=== PATIENT | female | born 1965 | race Caucasian/White ===

== ENCOUNTER → 2019-08-04 11:00 | Outpatient (BNVA) | payer OTHER, MEDICAID, SELFPAY | PROVIDERS: Visit Provider Nurse Practitioner Family | DX: R50.9 Fever, unspecified (principal); E78.5 Hyperlipidemia, unspecified; J11.1 Influenza due to unidentified influenza virus with other respiratory manifestations; R73.9 Hyperglycemia, unspecified | CPT/HCPCS: 80053; 80061; 83036; 84443; 85025; 87804 ==

== ENCOUNTER → 2019-09-20 14:12 | Outpatient (BNVA) | payer MEDICAID, SELFPAY | PROVIDERS: Visit Provider Nurse Practitioner Family | DX: M79.604 Pain in right leg (principal) | CPT/HCPCS: 73590; 73610 ==

== ENCOUNTER → 2019-09-26 09:07 | Outpatient (BNVA) | payer MEDICAID, SELFPAY | PROVIDERS: Referring Provider Nurse Practitioner Family; Visit Provider Podiatrist Foot & Ankle Surgery | DX: S99.929A Unspecified injury of unspecified foot, initial encounter (principal) | CPT/HCPCS: 73630 ==

== ENCOUNTER → 2019-12-13 13:57 | Outpatient (BNVA) | payer MEDICAID, SELFPAY | PROVIDERS: Visit Provider Nurse Practitioner Family | DX: M25.552 Pain in left hip (principal) | CPT/HCPCS: 73502 ==

== ENCOUNTER → 2020-01-05 12:30 | Outpatient (BNVA) | payer MEDICAID, SELFPAY | PROVIDERS: Visit Provider Nurse Practitioner Family | DX: R73.9 Hyperglycemia, unspecified (principal); M79.662 Pain in left lower leg; E78.5 Hyperlipidemia, unspecified; J30.2 Other seasonal allergic rhinitis; W57.XXXA Bitten or stung by nonvenomous insect and other nonvenomous arthropods, initial encounter | CPT/HCPCS: 80053; 80061; 83036; 85025 ==

== ENCOUNTER 2020-02-07 11:36 | Outpatient (CLI) | payer MEDICAID, SELFPAY ==
--- NOTE | 2020-02-07 11:43 | USCV_ITS ---
Keli Boucher Age: 54 Gender: F : 1965 Exam Date: 02/07/2020 11:56 Ordering Phys: Amber Minor TRENCH TRIMMER FINE TRENCH TRIMMER FINE Technologist: Lynette Orozco [place] [facility] [place]: PAIN LT CALF. SPIDER BITE MEDIAL LT POP FOSSA HISTORY: BLACK spider bite. PROCEDURES: Venous duplex imaging was performed in only the left lower extremity. The following venous structures were evaluated: common femoral vein, profunda vein, proximal portion of the greater saphenous vein, superficial femoral vein, and the popliteal vein. In addition, the posterior tibial and peroneal trunk were evaluated. Serial compression, augmentation maneuvers, and spectral Doppler flow evaluation were performed. Area of bite examined and Lt. SSV. FINDINGS: Normal 2-D Doppler and augmentation and compressibility throughout the lower extremity venous structures. Additional imaging through the proximal calf veins also reveals no thrombus. Limited evaluation of the greater saphenous vein is patent with no thrombus. CONCLUSIONS No DVT left lower extremity. Dr. Radha iLng DO (Electronically Signed) Final Date: 07 February 2020 14:38 S
== END 2020-02-07 11:37 | disposition home or self-care (01) ==
LOC: US 11:37
PROVIDERS: PCP Nurse Practitioner Family; Visit Provider Nurse Practitioner Family
DX: M79.662 Pain in left lower leg (principal); T63.301A Toxic effect of unspecified spider venom, accidental (unintentional), initial encounter; X58.XXXA Exposure to other specified factors, initial encounter
CPT/HCPCS: 93971

== ENCOUNTER 2020-04-05 11:38 | Outpatient (CLI) | payer MEDICAID, SELFPAY ==
--- NOTE | 2020-04-05 12:00 | MM_ITS ---
WS: [id number] BILATERAL SCREENING DIGITAL MAMMOGRAM WITH CAD HISTORY: breast cancer screening COMPARISON: 02/24/2017 Bilateral CC and MLO views submitted. Computer aided detection analyzed. Breast composition: There are scattered areas of fibroglandular density. No suspicious masses. Area o f architectural distortion in the mid RIGHT breast is stable. There are benign calcifications bilater ally. Long-term stability of an 8 mm nodule upper outer quadrant RIGHT breast. MM/[place] [id number] IMPRESSION: BI-RADS: 2-Benign FOLLOW UP: 1 Year Follow-up
== END 2020-04-05 11:39 | disposition home or self-care (01) ==
LOC: RADSHAW 11:42
PROVIDERS: PCP Nurse Practitioner Family; Visit Provider Nurse Practitioner Women's Health
DX: Z12.31 Encounter for screening mammogram for malignant neoplasm of breast (principal)
CPT/HCPCS: 77067

== ENCOUNTER → 2020-06-25 10:14 | Outpatient (BNVA) | payer MEDICAID, SELFPAY | PROVIDERS: PCP Nurse Practitioner Family; Visit Provider Nurse Practitioner Family | DX: M25.552 Pain in left hip (principal); E11.9 Type 2 diabetes mellitus without complications | CPT/HCPCS: 80053; 80061; 82043; 82306; 82607; 83036; 85025 ==

== ENCOUNTER 2020-08-30 12:57 | Outpatient (CLI) | payer MEDICAID, SELFPAY ==
[2020-08-30] MEDS: iohexol 300 mg/mL 100 mL Btl IV (13:26)
--- NOTE | 2020-08-30 13:30 | CT_ITS ---
WS: [id number] CT CHEST TECHNIQUE: Contrast enhanced CT of the chest with coronal and sagittal reformatted images. CLINICAL INFORMATION: R05 - Cough COMPARISON: None. DLP: 940.[address] scans at [facility] use at least one of these dose optimization techniques: automat ed exposure control; mA and/or kV adjustment per patient size (includes targeted exams where dose is matched to clinical indication); or iterative reconstruction. FINDINGS: Both lungs are well aerated. No acute pulmonary infiltrates. No focal pneumonia or pleural fluid. Indra cified granuloma left lower lobe. No mediastinal or hilar lymphadenopathy. No axillary lymphadenopathy. Normal caliber thoracic aorta. Proximal main pulmonary arteries are normal. Diffuse fatty infiltration of the liver. Adrenal glands are normal. Hypertrophic changes mid thoracic spine. CT/CT chest w con* [id number] IMPRESSION: 1. Both lungs are well aerated. No acute pulmonary infiltrates. 2. No suspicious pulmonary parenchymal opacities. 3. No focal pneumonia or pleural fluid. 4. No mediastinal or hilar lymphadenopathy. 5. Diffuse fatty infiltration of the liver.
== END 2020-08-30 12:58 | disposition home or self-care (01) ==
LOC: RADWPI 13:00
PROVIDERS: PCP Nurse Practitioner Family; Visit Provider Nurse Practitioner Family
DX: R05 Cough (principal); K76.0 Fatty (change of) liver, not elsewhere classified
CPT/HCPCS: 71046; 71260; Q9967

== ENCOUNTER 2020-11-10 11:09 | Emergency (ER) | payer MEDICAID, SELFPAY ==
[2020-11-10 11:17] VITALS: BP 167/108; PULSE 100; RESP 18; TEMP 36.5; O2SAT 97; BMI 32.9
[2020-11-10 11:25] VITALS: BP 167/108; PULSE 99; RESP 18; O2SAT 97
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
[2020-11-10 12:01] VITALS: BP 148/80; PULSE 93; RESP 18; TEMP 37.2; O2SAT 97
== END 2020-11-10 12:04 | disposition home or self-care (01) ==
PROVIDERS: Emergency Provider Physician Assistant; PCP Nurse Practitioner Family
DX: L03.112 Cellulitis of left axilla (principal); Z79.82 Long term (current) use of aspirin; Z79.84 Long term (current) use of oral hypoglycemic drugs; E78.5 Hyperlipidemia, unspecified; Z77.22 Contact with and (suspected) exposure to environmental tobacco smoke (acute) (chronic)
CPT/HCPCS: 99282

== ENCOUNTER → 2021-01-29 14:26 | Outpatient (BNVA) | payer MEDICAID, SELFPAY | PROVIDERS: PCP Nurse Practitioner Family; Visit Provider Nurse Practitioner Women's Health | DX: R30.0 Dysuria (principal); N95.2 Postmenopausal atrophic vaginitis | CPT/HCPCS: 81000; 87086 ==

== ENCOUNTER → 2021-02-06 15:26 | Outpatient (BNVA) | payer MEDICAID, SELFPAY | PROVIDERS: PCP Nurse Practitioner Family; Visit Provider Podiatrist Foot & Ankle Surgery | DX: M25.571 Pain in right ankle and joints of right foot (principal); M79.671 Pain in right foot | CPT/HCPCS: 73610; 73630 ==

== ENCOUNTER 2021-02-06 16:42 | Outpatient (CLI) | payer SELFPAY | END 2021-02-06 16:43 | disposition home or self-care (01) | LOC: SPT 16:43 | PROVIDERS: PCP Nurse Practitioner Family; Visit Provider Podiatrist Foot & Ankle Surgery | DX: Z46.89 Encounter for fitting and adjustment of other specified devices (principal); S93.401D Sprain of unspecified ligament of right ankle, subsequent encounter; X58.XXXD Exposure to other specified factors, subsequent encounter | CPT/HCPCS: 97760; L1902 ==

== ENCOUNTER 2021-02-20 08:54 | Emergency (ER) | payer MEDICAID, SELFPAY ==
[2021-02-20 09:03] VITALS: BP 178/113; PULSE 98; TEMP 37.1; O2SAT 95; BMI 29.2
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
--- NOTE | 2021-02-20 09:13 | CT_ITS ---
WS: [id number] CT ABDOMEN AND PELVIS NONCONTRAST HISTORY: R flank pain TECHNIQUE: Imaging performed through the abdomen and pelvis. Coronal and sagittal reformats are submi tted. All CT scans at [facility] use at least one of these dose optimization techniques: auto mated exposure control; mA and/or kV adjustment per patient size (includes targeted exams where dose is matched to clinical indication); or iterative reconstruction. DLP: 1768.45 mGy.cm COMPARISON: 11/17/2013 Lower thorax: Lung bases are clear. Visualized heart is normal. No hiatal hernia. Liver: Mild hepatomegaly and hepatic steatosis. No bile duct dilatation. Gallbladder: Normal gallbladder. Pancreas: Normal size and attenuation. Normal pancreatic duct. No pancreatitis or mass. Spleen: Normal spleen with granulomata. Adrenal glands: Normal. No mass. Right kidney: Mildly enlarged RIGHT kidney and mild hydronephrosis. Nonobstructing 2 mm calcification RIGHT upper pole. RIGHT ureter is dilated with perinephric stranding secondary to a 3 mm calcificati on at the UV junction. There are 3 calcifications within the distal RIGHT ureter causing obstruction. One of these calcifications is extruded into the bladder. Left kidney: Exophytic 8 mm nodule from the lower pole the LEFT kidney. Slight increase in size since 2013. No obstruction or calcification. 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 Aorta: Mild atherosclerosis abdominal aorta with no aneurysm. No free fluid, intraperitoneal air or significant lymphadenopathy. GI tract: Normal appendix. No GI tract obstruction. There are a few scattered diverticula in the colo n. No adjacent inflammation. Abdominal wall: Small umbilical hernia contains fat only. Pelvis: Well-circumscribed cystic mass in the RIGHT adnexa may be ovarian in etiology. This mass sandip ures 2.2 x 2.8 cm. This cystic mass has been present since 2012 with only slight increase in size. Osseous structures: Unremarkable. CT/CT kidney stone [id number] IMPRESSION: 1. Mild RIGHT hydroureteronephrosis secondary to calcifications at the UV junc tion. There are 3 adjacent calcifications at the UV junction, one of these may actually be extruded into the bladder. The largest calcification measures 3 mm. 2. Normal appendix. 3. Cystic mass in the RIGHT adnexa with minimal increase in size since 2012. P robably related to the ovary. 4. Minimal increase in size of an 8 mm nodule which is exophytic from the LEFT kidney. Minimal increase in size since 2012.
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
[2021-02-20 09:29] VITALS: RESP 20
[2021-02-20] MEDS: ondansetron 2 mg/ML SDV 2 mL 4 MG IVP (09:30)
[2021-02-20] MEDS: morphine 4 mg/mL SDV 1 mL IVP (09:30)
[2021-02-20] MEDS: sodium chloride 0.9% 1,000 ML 999 ML IV (09:30)
[2021-02-20 09:31] LABS: Basophils % 0.7 %; Eosinophils # 0.2 10^3/uL (0.0-0.8); Eosinophils % 2.6 %; Hemoglobin 11.3 g/dL (11.5-15.3); Lymphocytes # 1.8 10^3/uL (0.8-4.8); Lymphocytes % 29.3 %; Mean Corpuscular HGB Conc 30.5 g/dL (30.0-36.0); Mean Corpuscular Hemoglobin 26.7 pg (28.0-34.0); Mean Corpuscular Volume 87.5 fl (81-99); Mean Platelet Volume 9.8 fL (7.4-10.4); Monocytes # 0.5 10^3/uL (0.2-0.9); Monocytes % 8.8 %; Neutrophils # 3.56 10^3/uL (1.8-7.7); Neutrophils % 58.3 %; Nucleated Red Blood Cells % 0 %; Platelet Count 326 10^3/cmm (130-400); Red Blood Count 4.23 10^6/uL (4.1-5.3); Red Cell Distribution Width 13.2 % (12.1-15.1); White Blood Count 6.1 10^3/uL (4.0-10.0)
[2021-02-20] MEDS: HYDROmorphone 1 mg/mL INJ 1 mL 0.5 MG IVP (10:05)
[2021-02-20] MEDS: ketorolac 30 mg/mL INJ IVP (10:08)
[2021-02-20 10:09] LABS: Add Urine Microscopic? YES; Bilirubin Urine Neg (Negative); Blood Urine 3+ (Negative); Glucose Urine UA Trace (Normal); Ketones Urine 1+ (Negative); Leukocyte Esterase Urine 1+ (Negative); Nitrate Urine Negative (Negative); Protein Urine 1+ (Negative); Urine Appearance Clear (CLEAR); Urine Color Amber (Yellow); Urobilinogen Urine Neg (Negative)
[2021-02-20 10:10] LABS: RBC Urine 25-40 /hpf (0-2); Squamous Epithelial Cell Urine 0-4 /hpf (0-5); WBC Urine 15-25 /hpf (0-5)
[2021-02-20 10:11] LABS: Add Urine Culture? Yes; Bacteria Urine 1+ /hpf
[2021-02-20 10:15] LABS: Alanine Aminotransferase 44 U/L (0-33); Albumin Level 4.2 g/dL (3.5-5.2); Alkaline Phosphatase 90 IU/L (35-105); Anion Gap 15.7 (5-19); Aspartate Amino Transferase 31 U/L (0-32); Blood Urea Nitrogen 16 mg/dL (6-20); Calcium 9.1 mg/dL (8.5-10.5); Carbon Dioxide 26 mmol/L (22-29); Chloride 106 mmol/L (98-107); Globulin 2.4 g/dL (1.3-4.6); Glomerular Filtration Rate 129.1 mL/min (90-130); Glucose 167 mg/dL (65-115); Lipase 44 U/L (13-60); Osmolality Calculated 303 mOsm/kg (285-295); Potassium 3.7 mmol/L (3.5-5.1); Sodium 144 mmol/L (136-145); Total Protein 6.6 g/dL (6.6-8.7)
[2021-02-20 10:29] VITALS: RESP 15
[2021-02-20 11:00] VITALS: RESP 15
[2021-02-20 11:16] LABS: Charge for UA Resulting for Rev
[2021-02-20 11:34] LABS: Add Urine Microscopic? YES; Bilirubin Urine Neg (Negative); Blood Urine 3+ (Negative); Glucose Urine UA 1+ (Normal); Ketones Urine 1+ (Negative); Leukocyte Esterase Urine Negative (Negative); Nitrate Urine Negative (Negative); Protein Urine 1+ (Negative); Specific Gravity, Urine 1.025 (1.005-1.030); Urine Appearance SL Hazy (CLEAR); Urine Color Straw (Yellow); Urobilinogen Urine Neg (Negative); pH Urine 5 (5-7)
[2021-02-20 12:04] VITALS: RESP 15
--- NOTE | 2021-02-20 13:44 | DCPLANNER ---
team manager had message to schedule a follow up appointment for patient with Dr. Salmeron. team manager called the office of Dr. Salmeron, spoke with Lia, gave clinic patients information. team manager was told that patients information would be printed and reviewed. Clinic will call patient with appointment information.
--- NOTE | 2021-02-21 11:31 | DCPLANNER ---
Patient has a follow up appointment scheduled for Wednesday, February 24, [address] at 3:[address] Salmeron. Clinic will call patient with appointment information.
--- NOTE | 2021-02-27 09:24 | DCPLANNER ---
Patient had a follow up appointment scheduled for 02.24.[address] Salmeron - patient did attend appointment.
== END 2021-02-20 12:05 | disposition home or self-care (01) ==
PROVIDERS: Emergency Provider Physician Assistant; PCP Nurse Practitioner Family
DX: N20.1 Calculus of ureter (principal); Z79.84 Long term (current) use of oral hypoglycemic drugs; Z79.82 Long term (current) use of aspirin; E78.5 Hyperlipidemia, unspecified; Z87.891 Personal history of nicotine dependence
CPT/HCPCS: 74176; 80053; 81001; 81003; 83690; 85025; 87086; 96361; 96374; 96375; 99284; J1170; J1885; J2270; J2405; J7030

== ENCOUNTER → 2021-02-21 14:34 | Outpatient (BNVA) | payer MEDICAID, SELFPAY | PROVIDERS: PCP Nurse Practitioner Family; Visit Provider Nurse Practitioner Women's Health | DX: N95.0 Postmenopausal bleeding (principal) | CPT/HCPCS: 76830 ==

== ENCOUNTER 2021-02-24 13:47 | Outpatient (CLI) | payer MEDICAID, SELFPAY ==
--- NOTE | 2021-02-24 13:51 | XRR_ITS ---
PROCEDURE INFORMATION: Exam: XR Abdomen Exam date and time: 02/24/2021 1:51 PM Age: 55 years old Clinical indication: Condition or disease; Kidney or ureter condition; Calculus (stone) in ureter; Prior surgery; Surgery type: Hyst, d&c; Patient HX: Follow up RT ureteral stone TECHNIQUE: Imaging protocol: XR of the abdomen. Views: Frontal supine view of the abdomen. 1 View. COMPARISON: CT kidney stone [id number] 02/20/2021 9:33 AM FINDINGS: Gastrointestinal tract: Normal. No bowel dilation. Organs: The uterus is surgically absent. Persistent 2 mm calcific densities about the right UVJ, likely corresponding to stones seen on recent abdomen CT. Scattered pelvic phleboliths are re-identified. Bones/joints: Unremarkable. XR/XR KUB [id number] IMPRESSION: Calcific densities about the right UVJ, likely corresponding to stones seen on recent abdomen CT.
== END 2021-02-24 13:48 | disposition home or self-care (01) ==
LOC: RAD 13:49
PROVIDERS: PCP Nurse Practitioner Family; Visit Provider Urology
DX: N20.1 Calculus of ureter (principal)
CPT/HCPCS: 74018; 81003; 82365; 88300

== ENCOUNTER → 2021-03-07 09:43 | Outpatient (BNVA) | payer MEDICAID, SELFPAY | PROVIDERS: PCP Nurse Practitioner Family; Visit Provider Nurse Practitioner Family | DX: E53.8 Deficiency of other specified B group vitamins (principal); E11.9 Type 2 diabetes mellitus without complications; E55.9 Vitamin D deficiency, unspecified; R03.0 Elevated blood-pressure reading, without diagnosis of hypertension; E78.5 Hyperlipidemia, unspecified; J45.40 Moderate persistent asthma, uncomplicated; J30.2 Other seasonal allergic rhinitis; J20.9 Acute bronchitis, unspecified | CPT/HCPCS: 80053; 80061; 82306; 82607; 83036; 85025 ==

== ENCOUNTER → 2021-03-10 14:21 | Outpatient (BNVA) | payer MEDICAID, SELFPAY | PROVIDERS: PCP Nurse Practitioner Family; Visit Provider Nurse Practitioner Women's Health | DX: N95.0 Postmenopausal bleeding (principal) | CPT/HCPCS: 88305 ==

== ENCOUNTER 2021-03-14 08:23 | Outpatient (CLI) | payer MEDICAID, SELFPAY ==
--- NOTE | 2021-03-14 07:15 | US_ITS ---
WS: [id number] ULTRASOUND RENAL TECHNIQUE: Ultrasound examination of both kidneys. CLINICAL INFORMATION: LEFT RENAL LESION COMPARISON: CT February 20, 2021 FINDINGS: RIGHT: Right hydronephrosis appears improved or resolved compared to the prior CT Echogenicity: Normal. Cortical thickness: 1.0 cm; Normal. Hydronephrosis: None. Perinephric fluid: None. Right kidney measures: 10.7 cm x 5.4 cm x 4.8 cm. LEFT: Left kidney: Simple inferior pole renal cyst measuring 1.3 x 1.2 x 1.2 cm Echogenicity: Normal. Cortical thickness: 0.9 cm; Normal. Hydronephrosis: None. Perinephric fluid: None. Left kidney measures: 11.5 cm x 5.3 cm x 3.9 cm. Normal visualized aorta. Bladder decompressed US/US renal BI* [id number] IMPRESSION: 1. No hydronephrosis in either kidney. 2. Bladder is decompressed. 3. Simple inferior pole renal cyst measuring 1.3 x 1.2 x 1.2 cm
--- NOTE | 2021-03-14 09:30 | XR_ITS ---
WS: [id number] ABDOMEN KUB CLINICAL INFORMATION: Renal/ureteral calculi. COMPARISON: February 24, 2021 CT February 20, 2021 FINDINGS: Pelvic phleboliths. No visualized renal parenchymal or definite ureteral calculi. Normal bowel gas pattern. Scattered air and normal caliber small and large bowel. No significant reina l distention. XR/XR KUB [id number] Impression: No visualized renal parenchymal or definite ureteral calculi. Previous describe d tiny obstructing calculi at the right UVJ too small to definitively character ize on this examination and may have resolved. This can be followed up with lele al stone protocol CT.
== END 2021-03-14 08:24 | disposition home or self-care (01) ==
LOC: US 08:25
PROVIDERS: PCP Nurse Practitioner Family; Visit Provider Urology
DX: N20.2 Calculus of kidney with calculus of ureter (principal); N28.89 Other specified disorders of kidney and ureter; N28.1 Cyst of kidney, acquired
CPT/HCPCS: 74018; 76770; 81003

== ENCOUNTER → 2021-05-12 09:52 | Outpatient (BNVA) | payer MEDICAID, SELFPAY | PROVIDERS: PCP Nurse Practitioner Family; Visit Provider Nurse Practitioner Family | DX: Z20.822 Contact with and (suspected) exposure to COVID-19 (principal); J01.01 Acute recurrent maxillary sinusitis | CPT/HCPCS: 87635 ==

== ENCOUNTER → 2021-05-15 13:20 | Outpatient (BNVA) | payer MEDICAID, SELFPAY | PROVIDERS: PCP Nurse Practitioner Family; Visit Provider Obstetrics & Gynecology | DX: N95.0 Postmenopausal bleeding (principal); R93.89 Abnormal findings on diagnostic imaging of other specified body structures; Z20.822 Contact with and (suspected) exposure to COVID-19 | CPT/HCPCS: 87635 ==

== ENCOUNTER 2021-05-20 09:25 | Day surgery (SDC) | payer MEDICAID, SELFPAY ==
[2021-05-16 13:17] LABS: Basophils % 0.9 %; Eosinophils # 0.1 10^3/uL (0.0-0.8); Eosinophils % 3.1 %; Hematocrit 35.6 % (37.0-47.0); Hemoglobin 11.1 g/dL (11.5-15.3); Lymphocytes # 1.5 10^3/uL (0.8-4.8); Lymphocytes % 32.5 %; Mean Corpuscular HGB Conc 31.2 g/dL (30.0-36.0); Mean Corpuscular Hemoglobin 26.6 pg (28.0-34.0); Mean Corpuscular Volume 85.2 fl (81-99); Mean Platelet Volume 9.3 fL (7.4-10.4); Monocytes # 0.3 10^3/uL (0.2-0.9); Monocytes % 7.5 %; Neutrophils # 2.52 10^3/uL (1.8-7.7); Neutrophils % 55.8 %; Nucleated Red Blood Cells % 0 %; Platelet Count 381 10^3/cmm (130-400); Red Blood Count 4.18 10^6/uL (4.1-5.3); Red Cell Distribution Width 12.7 % (12.1-15.1); White Blood Count 4.5 10^3/uL (4.0-10.0)
[2021-05-16 13:24] VITALS: BMI 33.0
[2021-05-16 13:25] LABS: INR 0.91 (0.8-1.2)
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
[2021-05-16 13:36] LABS: Anion Gap 11.8 (5-19); Blood Urea Nitrogen 12 mg/dL (6-20); Calcium 8.7 mg/dL (8.5-10.5); Carbon Dioxide 27 mmol/L (22-29); Chloride 103 mmol/L (98-107); Glucose 129 mg/dL (65-115); Osmolality Calculated 287 mOsm/kg (285-295); Potassium 3.8 mmol/L (3.5-5.1); Sodium 138 mmol/L (136-145)
[2021-05-20] VITALS (8 sets, daily range): BP systolic 119–171; BP diastolic 65–86; PULSE 70–78; RESP 14–20; TEMP 36.1–36.8; O2SAT 97–100
--- NOTE | 2021-05-20 10:27 | PC.NURSE ---
KEFZOL 2GM ORDERED FOR THIS PATIENT. NOTIFIED PHYSICIAN OF PCN ALLERGY. PHYSICIAN SAID TO PROCEED WITH ORDERED ANTIBIOTIC
[2021-05-20 10:52] LABS: Glucose Point of Care 115 mg/dL (70-110)
[2021-05-20] MEDS: sodium chloride 0.9% 1,000 ML 30 ML IV (10:54)
[2021-05-20] MEDS: ketorolac 30 mg/mL INJ IVP (10:56)
--- NOTE | 2021-05-20 11:04 | P.ANESUD_ITS ---
Pre-Anesthetic Update Pre-Anesthetic Assessment: Date of Surgery/Procedure: 05/20/21 Preop Zoila gnosis: PMB Proposed Procedure: Operation Date: 05/20/21 11:25 Proposed Procedures p Hysteroscopy w/ Myosure 65910 10759 N95.0 R93.89(Not Applicable) - Carola Escobar MD s Dilation And Curettage (D&C)(Not Applicable) - Carola Escobar MD Any changes to Pre-Anesthetic Assessment?: No Last Intake: Intake Last Liquid Date 05/19/21 Last Liquid Time 17:00 Last Solid Date 05/19/21 Last Solid Time 17:00 Labs Last 48hrs: Laboratory Results - last 48 hr 05/20/21 10:49 POC Glucose 115 H Vitals: Temperature 97.1 F L 05/20/21 10:29 Temperature Source Tympanic 05/20/21 10:29 Pulse Rate 73 05/20/21 10:29 Respiratory Rate 18 05/20/21 10:29 Blood Pressure 171/73 05/20/21 10:29 Blood Pressure Beth n 105 05/20/21 10:29 Pulse Oximetry 98 05/20/21 10:29 Oxygen Delivery Me thod 05/20/21 10:31 Exam: Pre-Anes Outpt Exam: alert, oriented x 3, clear to auscultation bilaterally and regular rate & rhythm Cardiac Studies: No Data to Display
--- NOTE | 2021-05-20 11:22 | W.PM.OPSUD ---
Surgery/Procedure H&P Update DATE OF PROCEDURE: May 20, 2021 DATE H&P PERFORMED: 04/18/21 H&P UPDATE INFORMATION: I have reviewed H&P completed within last 30 days, I have examined patient prior to procedure and No changes to prior documentation PREOP DIAGNOSIS: PMB PLANNED PROCEDURE: Operation Date: 05/20/21 11:25 Proposed Procedures p Hysteroscopy w/ Myosure 88754 49249 N95.0 R93.89(Not Applicable) - Carola Escobar MD s Dilation And Curettage (D&C)(Not Applicable) - Carola Escobar MD Related Problem List Diagnoses (1) Postmenopausal bleeding: (2) Thickened endometrium:
--- NOTE | 2021-05-20 12:15 | PM.OP ---
Operative Report Date of procedure: May 20, 2021 Pre-op Diagnosis: PMB Post-op diagnosis: same Post-op Findings: 7 week sized uterus. Hyperemic tissue. No masses visualized Procedure Done: hysteroscopy, dilation and curettage with myosure Specimens removed/disposition: endometrial curettings to pathology Surgeon: Carola Escobar Anesthesia: MAC Estimated blood loss (mL): 10 IV fluids (mL): 500 Complications: none Findings: hysteroscopy deficit 100 Condition: stable Disposition: PACU Procedure: The patient was taken to the operating room where monitored anesthesia was administered and to be adequate. She was prepped and draped in the normal sterile fashion in the dorsal lithotomy position in [facility]. A weighted speculum was placed into the vagina and the anterior lip of the cervix grasped with a single-tooth tenaculum. The uterus was sounded to 7 cm. The cervix was dilated to 16 [place]. The hysteroscope was advanced into the endometrial cavity. There was hyperemic tissue visualized. The MyoSure device was activated and the tissue was removed. Pictures were taken pre and post procedure. All instruments were removed. The patient tolerated the procedure well. Sponge lap and needle counts were correct x3. She was taken to the recovery room in stable condition.
--- NOTE | 2021-05-20 12:18 | PM.DCS ---
Discharge Providers Date of Discharge: May 20, 2021 Attending Provider at Discharge: Carola Escobar MD Primary Care Provider: DEVI Manley Diagnoses at Discharge Discharge Diagnosis (1) Postmenopausal bleeding: Status: Acute (2) Thickened endometrium: Status: Acute Reason for Visit Reason for Visit: Postmenopausal bleeding Hospital Course Hospital Course The patient was admitted for surgery. She did well postoperatively and was ready for discharge Discharge Data Data Completed and Pending: Pending at discharge Category Date Time Status ES surgery / GI i mages Routine Exams 05/20/21 11:19 Taken Pathology: Surgic al [PTH] Routine Pth 05/20/21 12:08 Ordered Labs from last 24 hours 05/20/21 10:49 POC Glucose 115 H Vitals: Last Vital Signs Temp 97 F L 05/20/21 12:06 Pulse 78 05/20/21 12:06 Resp 14 05/20/21 12:06 BP 133/81 05/20/21 12:06 Pulse Ox 97 05/20/21 12:06 Discharge Plan Discharge Patient Disposition: Home Condition: Stable Prescriptions: Continued misoprostol [Cytotec] 200 mcg tablet 600 mcg PO Q6H Qty: 12 RF: 0 aspirin 81 mg tablet,delayed release (DR/EC) 81 mg PO DAILY RF: 0 albuterol sulfate [ProAir HFA] 90 mcg/actuation HFA aerosol inhaler 2 puff INHALATION Q6H PRN (Reason: shortness of breath or wheezing) Qty: 18 RF: 2 atorvastatin [Lipitor] 80 mg tablet 80 mg PO DAILY Qty: 30 RF: 2 budesonide-formoterol [Symbicort] 80-4.5 mcg/actuation HFA aerosol inhaler 2 puff inhalation BID Qty: 10.2 RF: 2 montelukast 10 mg tablet 10 mg PO DAILY 30 Days Qty: 30 RF: 5 metformin 500 mg tablet 1,000 mg PO BID Qty: 120 RF: 2 terbinafine HCl 250 mg tablet 250 mg PO DAILY Qty: 30 RF: 0 doxycycline hyclate 100 mg capsule 100 mg PO BID Qty: 20 RF: 0 cyanocobalamin (vitamin B-12) 1,000 mcg/mL solution 1,000 mcg IM DAILY 7 Days Qty: 1 RF: 12 cetirizine [Zyrtec] 10 mg tablet 10 mg PO DAILY Qty: 90 RF: 2 cholecalciferol (vitamin D3) 1,250 mcg (50,000 unit) capsule 1,250 mcg PO Q7D Qty: 4 RF: 1 fluticasone propionate [Flonase Allergy Relief] 50 mcg/actuation spray,suspension 1 spray INTRANASAL BID RF: 0 meloxicam 15 mg tablet 15 mg PO DAILY RF: 0 Discharge Orders: Discharge Order (Routine); Ordered 05/20/21 Ordered By: Carola Escobar Discharge Attestations Time Spent in Discharge Care*: less than 30 min Quality Metrics Clinical Quality Measures During this hospital stay, did patient experience: None Coding Level of Care Code Acute Chg FW DC note Diagnoses Postmenopausal bleeding N95.0 Thickened endometrium R93.89
[2021-05-20] MEDS: ketorolac 30 mg/mL INJ (12:20)
--- NOTE | 2021-05-20 13:19 | ANE.PACU2 ---
Inpatient post-anesthesia follow up: Airway intact: Yes Vital signs: Temperature 97.8 F Pulse Rate 70 Respiratory Rate 18 Blood Pressure 146/80 Pulse Oximetry 100 Oxygen Delivery Me thod Room Air Oxygen Flow Rate 8 Fraction of Inspir ed Oxygen Hydration adequate: Yes Nausea and vomiting: No Pain level: 2 Mental status: Baseline
== END 2021-05-20 13:08 | disposition home or self-care (01) ==
PROVIDERS: Anesthesiology; PCP Nurse Practitioner Family; Visit Provider Obstetrics & Gynecology
PROC: 0UDB8ZZ Extraction of Endometrium, Via Natural or Artificial Opening Endoscopic (ICD-10-PCS; CPT 58558; principal; 2021-05-20 11:15)
PROC: (CPT 58120; 2021-05-20 11:15)
DX: N95.0 Postmenopausal bleeding (principal); R93.89 Abnormal findings on diagnostic imaging of other specified body structures; J44.9 Chronic obstructive pulmonary disease, unspecified; E11.9 Type 2 diabetes mellitus without complications; E78.5 Hyperlipidemia, unspecified; Z79.84 Long term (current) use of oral hypoglycemic drugs
CPT/HCPCS: 58558; 36415; 36416; 80048; 82962; 85025; 85610; 88305; 96374; 96375; J0690; J1170; J1885; J2704; J7030

== ENCOUNTER → 2021-07-07 13:14 | Outpatient (BNVA) | payer MEDICAID, SELFPAY | PROVIDERS: PCP Nurse Practitioner Family; Visit Provider Nurse Practitioner Family | DX: J45.40 Moderate persistent asthma, uncomplicated (principal); J20.9 Acute bronchitis, unspecified; Z11.52 Encounter for screening for COVID-19; J32.9 Chronic sinusitis, unspecified | CPT/HCPCS: 87635 ==

== ENCOUNTER → 2021-07-28 16:27 | Outpatient (BNVA) | payer MEDICAID, SELFPAY | PROVIDERS: PCP Nurse Practitioner Family; Visit Provider Nurse Practitioner Family | DX: B35.1 Tinea unguium (principal); M54.50 Low back pain, unspecified; G89.29 Other chronic pain; U07.1 COVID-19; E53.8 Deficiency of other specified B group vitamins | CPT/HCPCS: 80053; 85025 ==

== ENCOUNTER 2021-08-09 13:13 | Outpatient (CLI) | payer MEDICAID, SELFPAY ==
--- NOTE | 2021-08-09 13:23 | XRR_ITS ---
PROCEDURE INFORMATION: Exam: XR Lumbosacral Spine Exam date and time: 08/09/2021 1:23 PM Age: 56 years old Clinical indication: Lumbago with sciatica; Bilateral; Patient HX: C/O low back and sciatic pain - chronic worsening; Additional info: M54.50 - low back pain, unspecified TECHNIQUE: Imaging protocol: XR of the lumbosacral spine. Views: 2 or 3 views. COMPARISON: CT kidney stone [id number] 02/20/2021 9:33 AM FINDINGS: Bones/joints: No acute fracture. Normal alignment. Minimal endplate degenerative changes within the mid and lower lumbar spine. Vertebral body and intervertebral disc heights are preserved. Soft tissues: Unremarkable. XR/XR lumbar spine 2-3V* [id number] IMPRESSION: No acute findings. No significant degenerative changes of the lumbar spine.
--- NOTE | 2021-08-09 13:23 | XRR_ITS ---
PROCEDURE INFORMATION: Exam: XR Bilateral Sacroiliac Joints Exam date and time: 08/09/2021 1:23 PM Age: 56 years old Clinical indication: Other: Lbp and sciatic; Patient HX: C/O low back and sciatic pain - chronic worsening; Additional info: M54.50 - low back pain, unspecified TECHNIQUE: Imaging protocol: XR Bilateral XR of the sacroiliac joints. Views: 3 or more views. COMPARISON: CR XR lumbar spine 2-3V* [id number] 08/09/2021 1:29 PM FINDINGS: Bones/joints: Normal. No acute fracture. No significant degenerative changes. Soft tissues: Normal. XR/XR sacroiliac jts m 3V [id number] IMPRESSION: No acute findings.
== END 2021-08-09 13:14 | disposition home or self-care (01) ==
LOC: RAD 13:14
PROVIDERS: PCP Nurse Practitioner Family; Visit Provider Nurse Practitioner Family
DX: M54.50 Low back pain, unspecified (principal); G89.29 Other chronic pain
CPT/HCPCS: 72100; 72202

== ENCOUNTER 2021-08-19 11:25 | Observation (INO) | payer MEDICAID, SELFPAY ==
[2021-08-14 13:38] VITALS: BMI 33.6
[2021-08-14 14:32] LABS: Basophils % 0.8 %; Eosinophils # 0.1 10^3/uL (0.0-0.8); Eosinophils % 2.3 %; Hemoglobin 11.2 g/dL (11.5-15.3); Lymphocytes # 1.5 10^3/uL (0.8-4.8); Lymphocytes % 28.8 %; Mean Corpuscular HGB Conc 30.3 g/dL (30.0-36.0); Mean Corpuscular Volume 89.2 fl (81-99); Mean Platelet Volume 9.6 fL (7.4-10.4); Monocytes # 0.4 10^3/uL (0.2-0.9); Monocytes % 7.4 %; Neutrophils # 3.07 10^3/uL (1.8-7.7); Neutrophils % 60.1 %; Nucleated Red Blood Cells % 0 %; Platelet Count 369 10^3/cmm (130-400); Red Blood Count 4.15 10^6/uL (4.1-5.3); White Blood Count 5.1 10^3/uL (4.0-10.0)
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
[2021-08-14 15:01] LABS: Anion Gap 13.3 (5-19); Blood Urea Nitrogen 14 mg/dL (6-20); Calcium 9.9 mg/dL (8.5-10.5); Carbon Dioxide 28 mmol/L (22-29); Chloride 103 mmol/L (98-107); Glomerular Filtration Rate 128.6 mL/min (90-130); Glucose 133 mg/dL (65-115); Osmolality Calculated 292 mOsm/kg (285-295); Potassium 4.3 mmol/L (3.5-5.1); Sodium 140 mmol/L (136-145)
[2021-08-14 17:45] LABS: Adenovirus Not Detected (NOT DETECT); Chlamydia Pneumoniae Not Detected (NOT DETECT); Coronavirus 229E,HKU1,NL63,OC4 Not Detected (NOT DETECT); Human Metapneumovirus Not Detected (NOT DETECT); Human Rhinovirus/Enterovirus Not Detected (NOT DETECT); Influenza A Not Detected (NOT DETECT); Influenza A H1 Not Detected (NOT DETECT); Influenza A H1-2009 Not Detected (NOT DETECT); Influenza A H3 Not Detected (NOT DETECT); Influenza B Not Detected (NOT DETECT); Mycoplasma Pneumoniae Not Detected (NOT DETECT); Parainfluenza Virus Type 1 Not Detected (NOT DETECT); Parainfluenza Virus Type 2 Not Detected (NOT DETECT); Parainfluenza Virus Type 3 Not Detected (NOT DETECT); Parainfluenza Virus Type 4 Not Detected (NOT DETECT); Respiratory Syncytial Virus A Not Detected (NOT DETECT); Respiratory Syncytial Virus B Not Detected (NOT DETECT); SARS-COV-2 Not Detected (NOT DETECT)
[2021-08-19] VITALS (29 sets, daily range): BP systolic 119–162; BP diastolic 72–95; PULSE 92–110; RESP 13–20; TEMP 36.1–37.2; O2SAT 92–99
[2021-08-19 06:11] LABS: Glucose Point of Care 145 mg/dL (70-110)
[2021-08-19] MEDS: acetaminophen 1,000 MG/100 ML PIGGYBACK 400 MG IV (06:18)
[2021-08-19] MEDS: phenazopyridine 100 mg Tablet 200 MG PO ×3 (06:19→20:16)
[2021-08-19] MEDS: CELEcoxib 200 mg Capsule 400 MG PO (06:19)
[2021-08-19] MEDS: gabapentin 300 mg Capsule PO (06:19)
[2021-08-19] MEDS: scopolamine 1.5 Patch 1 PATCH TRANSDERMA (06:19)
[2021-08-19] MEDS: ketorolac 30 mg/mL INJ IVP ×4 (06:20→23:02)
[2021-08-19] MEDS: sodium chloride 0.9% 1,000 ML 30 ML IV (06:23)
--- NOTE | 2021-08-19 06:52 | P.ANESUD_ITS ---
Pre-Anesthetic Update Pre-Anesthetic Assessment: Date of Surgery/Procedure: 08/19/21 Preop Zoila gnosis: thickened endometrium, adenomyosis, pmb Proposed Procedure: Operation Date: 08/19/21 07:00 Proposed Procedures p Laparoscopic Assist Vaginal Hysterectomy 92890/n80.0/r10.2(Not Applicable) - Carola Escobar MD s Laparoscopic Salpingo Oophorectomy(Bilateral) - Carola Escobar MD Any changes to Pre-Anesthetic Assessment?: No Last Intake: Intake Last Liquid Date 08/18/21 Last Liquid Time 17:00 Last Solid Date 08/18/21 Last Solid Time 17:00 Vitals: Temperature 98 F 08/19/21 06:09 Temperature Source Temporal Artery S can 08/19/21 06:09 Pulse Rate 101 H 08/19/21 06:09 Respiratory Rate 18 08/19/21 06:09 Blood Pressure 160/94 08/19/21 06:09 Blood Pressure Beth n 116 08/19/21 06:09 Pulse Oximetry 96 08/19/21 06:09 Oxygen Delivery Me thod 08/19/21 06:09 Exam: Pre-Anes Outpt Exam: alert, oriented x 3, clear to auscultation bilaterally and regular rate & rhythm Cardiac Studies: No Data to Display
--- NOTE | 2021-08-19 07:02 | W.PM.OPSUD ---
Surgery/Procedure H&P Update DATE OF PROCEDURE: August 19, 2021 DATE H&P PERFORMED: 08/14/21 H&P UPDATE INFORMATION: I have reviewed H&P completed within last 30 days, I have examined patient prior to procedure and No changes to prior documentation CHANGES TO PREVIOUS DOCUMENTATION: We have confirmed that the patient has had ancef prior and not had any reaction to it. PREOP DIAGNOSIS: thickened endometrium, adenomyosis, pmb PLANNED PROCEDURE: Operation Date: 08/19/21 07:00 Proposed Procedures p Laparoscopic Assist Vaginal Hysterectomy 62553/n80.0/r10.2(Not Applicable) - Carola Escobar MD s Laparoscopic Salpingo Oophorectomy(Bilateral) - Carola Escobar MD
[2021-08-19] MEDS: vasopressin 20 unit/mL INJ 4 UNIT INJECTION (07:47)
--- NOTE | 2021-08-19 10:16 | P.OP_ITS ---
Operative Report Date of procedure: August 19, 2021 Pre-op diagnosis: Preop Diagnosis thickened endometrium, adenomyosis, pmb Post-op diagnosis: same Post-op diagnosis: extensive adhesions of the small bowel to the pelvic sidewall and bladder Post-op findings: 6 week sized uterus, normal appearing tubes and ovaries Procedure done: LAVH with BSO Specimens removed/disposition: uterus and bilateral fallopian tubes and ovaries to pathology Surgeon: Carola Escobar Anesthesia: General Estimated blood loss (mL): 200 IV fluids (mL): 1,300 Urine output (mL): 400 Complications: none Findings: extensive pelvic adhesions. Normal appearing uterus, tubes and ovaries Condition: stable Disposition: PACU Procedure: The patient was taken to the operating room where general anesthesia was administered and found to be adequate. She was prepped and draped in the normal sterile fashion in the dorsal lithotomy position in [facility]. A Moctezuma catheter was placed. A weighted speculum was placed into the vagina and the anterior lip of the cervix was grasped with a single tooth tenaculum. The Zumi uterine manipulator was placed. The weighted speculum was removed. The gloves were changed and attention was turned to the abdomen. A 5 mm infraumbilical incision was made. Using a 5 mm port with the camera, the port was placed into the abdomen. The abdomen was insufflated. Two low, lateral 5 mm ports were placed on the left and right under direct visualization from the camera. There were extensive adhesions of the small bowel to the bladder and left peritoneium. The adhesions were carefully taken down with the scissors and blunt dissection. The right tube was grasped and elevated. There were still some thick adhesions present. Using the laparoscopic cautery, the mesosalpinx was divided between the ovary and tube. The tube was removed. The infundibulopelvic ligament was then cauterized lateral to the ovary. The round ligament was cauterized as well. This was performed the same way on the left. The uteroovarian ligaments as well as the round ligaments were ligated lateral to the tube and ovary, as there were no adhesions present anymore on the left side. Attention was then turned to the vaginal portion of the procedure. The weighted speculum was placed into the vagina. The zumi manipulator was removed. The single tooth tenaculum was removed and replaced with the antwan's tenaculum. 10 mL of dilute Pitressin was injected at the vesicovaginal junction. A circumferential incision was made at the vesicovaginal junction and the vaginal mucosa reflected cephalad. The posterior peritoneum was entered sharply with the Metzenbaum scissors and the long weighted speculum replaced. Using the Bijal clamps the uterosacral ligaments were clamped cut and suture- ligated. The anterior peritoneum was entered sharply with the metzenbaum scissors. Then sequentially the uterine arteries and cardinal ligaments were clamped cut and suture-ligated. A single-tooth tenaculum was used to deliver the uterus. The remaining segement of the utero-ovarian ligaments were clamped cut and suture-ligated bilaterally and the specimen was removed. There was good hemostasis with only mild bleeding from the cuff. The peritoneum was closed with a pursestring using 2-0 Vicryl. The vaginal cuff was closed with 0 Vicryl in a running locked pattern incorporating the uterosacral ligaments into the lateral aspects of the vaginal cuff. The Moctezuma catheter was removed and the cystoscope advanced into the bladder. The patient was given pyridium and bilateral spill was noted. There were no injuries or deficits noted in the bladder. The cystoscope was removed and the Moctezuma was replaced. Vaginal packing was placed for good hemostasis. The patient tolerated the procedure well. Sponge lap and needle counts were correct x3. She was taken to the recovery room in stable condition.
[2021-08-19] MEDS: fentaNYL 50 mcg/mL INJ 2mL IVP ×2 (10:27→10:38)
--- NOTE | 2021-08-19 10:34 | SUR.PHASEI ---
SCDS on and working
--- NOTE | 2021-08-19 10:38 | W.PM.OPSUD ---
Surgery/Procedure H&P Update DATE OF PROCEDURE: August 19, 2021 DATE H&P PERFORMED: 08/14/21 PREOP DIAGNOSIS: thickened endometrium, adenomyosis, pmb PLANNED PROCEDURE: Operation Date: 08/19/21 07:00 Proposed Procedures p Laparoscopic Assist Vaginal Hysterectomy 71277/n80.0/r10.2(Not Applicable) - Carola Escobar MD s Laparoscopic Salpingo Oophorectomy(Bilateral) - Carola Escobar MD Related Problem List Diagnoses (1) Adenomyosis: (2) Thickened endometrium: (3) Postmenopausal bleeding: (4) Vaginal atrophy:
[2021-08-19] MEDS: HYDROmorphone 1 mg/mL INJ 1 mL 0.5 MG IVP (10:53)
[2021-08-19] MEDS: lactated ringers 1,000 ML 125 ML IV ×2 (12:00→20:59)
--- NOTE | 2021-08-19 13:22 | ANE.PACU2 ---
Inpatient post-anesthesia follow up: Airway intact: Yes Vital signs: Temperature 97.0 F Pulse Rate 103 Respiratory Rate 16 Blood Pressure 135/76 Pulse Oximetry 99 Oxygen Delivery Me thod Nasal Cannula Oxygen Flow Rate 2 Fraction of Inspir ed Oxygen Hydration adequate: Yes Nausea and vomiting: No Pain level: 4 Mental status: Baseline
[2021-08-19] MEDS: oxyCODONE-APAP 5-325 mg Tablet PO ×2 (14:04→20:56)
--- NOTE | 2021-08-19 14:11 | PC.NURSE ---
Order for K pad there is no machines available.
[2021-08-19] MEDS: docusate sodium 100 mg Capsule PO (18:08)
[2021-08-19] MEDS: metformin 500 mg Tablet 1000 MG PO (18:08)
[2021-08-19] MEDS: simethicone 80 mg Chew PO (20:57)
[2021-08-20] VITALS (8 sets, daily range): BP systolic 99–117; BP diastolic 57–71; PULSE 86–107; RESP 16–18; TEMP 36.6–37; O2SAT 92–99
[2021-08-20 05:05] LABS: Hemoglobin 9.2 g/dL (11.5-15.3); Mean Corpuscular HGB Conc 29.7 g/dL (30.0-36.0); Mean Corpuscular Hemoglobin 26.6 pg (28.0-34.0); Mean Corpuscular Volume 89.6 fl (81-99); Mean Platelet Volume 8.5 fL (7.4-10.4); Platelet Count 299 10^3/cmm (130-400); Red Blood Count 3.46 10^6/uL (4.1-5.3); Red Cell Distribution Width 13.2 % (12.1-15.1); White Blood Count 7.2 10^3/uL (4.0-10.0)
[2021-08-20] MEDS: ketorolac 30 mg/mL INJ IVP (05:29)
[2021-08-20] MEDS: lactated ringers 1,000 ML 125 ML IV (05:30)
[2021-08-20] MEDS: sodium chloride 0.9% 1,000 ML 30 ML IV (07:55)
[2021-08-20] MEDS: metformin 500 mg Tablet 1000 MG PO (07:56)
[2021-08-20] MEDS: docusate sodium 100 mg Capsule PO (07:56)
[2021-08-20] MEDS: atorvastatin 40 mg Tablet 80 MG PO (07:56)
[2021-08-20] MEDS: oxyCODONE-APAP 5-325 mg Tablet PO (07:57)
[2021-08-20] MEDS: montelukast sodium 10 mg Tablet PO (07:57)
--- NOTE | 2021-08-20 10:22 | P.DS_ITS ---
Discharge Providers Date of Admission: 08/19/21 11:25 Date of Discharge: August 20, 2021 Attending Provider at Admission: Carola Escobar MD Attending Provider at Discharge: Carola Escobar MD Primary Care Provider: DEVI Manley Diagnoses at Discharge Discharge Diagnosis (1) Adenomyosis: Status: Acute (2) Thickened endometrium: Status: Acute (3) Postmenopausal bleeding: Status: Acute (4) Vaginal atrophy: Status: Acute Reason for Visit Reason for Visit: adenomyosis, pelvic pain Hospital Course Hospital Course The patient was admitted for surgery. she did well postoperatively and was ready for discharge on day #1 Physical Exam Narrative: Doing well this morning. Packing and harding catheter have been removed. Const: COMMON NORMALS: no acute distress, patient oriented x3, no limitations, healthy appearing, alert and well nourished GENERAL APPEARANCE: cooperative, comfortable, well kempt and well developed ORIENTATION/CONSCIOUSNESS: Yes awake, Yes oriented to person, Yes oriented to place and Yes oriented to time Resp: COMMON NORMALS: normal respiratory effort EFFORT & INSPECTION: Yes able to speak in complete sentences GI: COMMON NORMALS: Soft to palpation and non-tender PALPATION: Yes Soft to palpation Extremity: COMMON NORMALS: no calf tenderness Neuro: COMMON NORMALS: patient oriented x3 SENSORIUM/ORIENTATION: Yes alert, Yes oriented to person, Yes oriented to place and Yes oriented to time Psych: APPEARANCE: Yes well kempt Urinary Catheter Management: Harding Latex: Cath Placed During This Visit: yes Reason for Continuing Indwelling Catheter: Required Immobilization for Trauma or Surgery or Anesthesia Urinary Catheter Date of Insertion: 08/19/21 Urinary Catheter Time of Insertion: 07:37 Discharge Data Studies Completed and Pending Pending at discharge Category Date Time Status ES surgery / GI images Routine Exams 08/19/21 06:47 Taken Urine Culture Routine Lab 08/19/21 07:41 Results Pathology: Surgical [PTH] Routine Pth 08/19/21 09:51 Received Laboratory Results WBC 7.2 10^3/uL (4.0-10.0) 08/20/21 04:54 RBC 3.46 10^6/uL (4.1-5.3) L 08/20/21 04:54 Hgb 9.2 g/dL (11.5-15.3) L 08/20/21 04:54 Hct 31.0 % (37.0-47.0) L 08/20/21 04:54 MCV 89.6 fl (81-99) 08/20/21 04:54 MCH 26.6 pg (28.0-34.0) L 08/20/21 04:54 MCHC 29.7 g/dL (30.0-36.0) L 08/20/21 04:54 RDW 13.2 % (12.1-15.1) 08/20/21 04:54 Plt Count 299 10^3/cmm (130-400) 08/20/21 04:54 MPV 8.5 fL (7.4-10.4) 08/20/21 04:54 Neut % (Auto) 60.1 % 08/14/21 14:03 Lymph % (Auto) 28.8 % 08/14/21 14:03 [place] % (Auto) 7.4 % 08/14/21 14:03 Eos % (Auto) 2.3 % 08/14/21 14:03 Baso % (Auto) 0.8 % 08/14/21 14:03 Neut # (Auto) 3.07 10^3/uL (1.8-7.7) 08/14/21 14:03 Lymph # (Auto) 1.5 10^3/uL (0.8-4.8) 08/14/21 14:03 [place] # (Auto) 0.4 10^3/uL (0.2-0.9) 08/14/21 14:03 Eos # (Auto) 0.1 10^3/uL (0.0-0.8) 08/14/21 14:03 Baso # (Auto) 0.0 10^3/uL (0.0-0.1) 08/14/21 14:03 Nucleated RBC % (auto) 0 % 08/14/21 14:03 Nucleated RBCs # 0.0 /100WBC 08/14/21 14:03 Sodium 140 mmol/L (136-145) 08/14/21 14:03 Potassium 4.3 mmol/L (3.5-5.1) 08/14/21 14:03 Chloride 103 mmol/L (98-107) 08/14/21 14:03 Carbon Dioxide 28 mmol/L (22-29) 08/14/21 14:03 Anion Gap 13.3 (5-19) 08/14/21 14:03 BUN 14 mg/dL (6-20) 08/14/21 14:03 Creatinine 0.5 mg/dL (0.5-0.9) 08/14/21 14:03 GFR Calculation 128.6 mL/min (90-130) 08/14/21 14:03 Glucose 133 mg/dL (65-115) H 08/14/21 14:03 POC Glucose 145 mg/dL (70-110) H 08/19/21 06:08 Calculated Osmolality 292 mOsm/kg (285-295) 08/14/21 14:03 Calcium 9.9 mg/dL (8.5-10.5) 08/14/21 14:03 Coronavirus 229E (PCR) Not detected (NOT DETECT) 08/14/21 14:25 SARS-CoV-2 (PCR) Not detected (NOT DETECT) 08/14/21 14:25 Blood Type A Negative 08/19/21 06:10 Rho(D) Type Negative 08/19/21 06:10 Antibody Screen Negative 08/19/21 06:10 Vitals Last Vital Signs Temp 97.8 F 08/20/21 08:03 Pulse 93 08/20/21 08:14 Resp 17 08/20/21 08:11 BP 109/66 08/20/21 08:03 Pulse Ox 99 08/20/21 08:11 Discharge Plan Discharge Patient Disposition: Home Condition: Stable Prescriptions: New ibuprofen 800 mg Tablet 800 mg PO Q8H Qty: 40 0RF oxycodone-acetaminophen 5-325 mg Tablet 1 tab PO Q4H PRN (Reason: Moderate To Severe Pain) Qty: 30 0RF docusate sodium 100 mg Capsule 100 mg PO BID Qty: 60 0RF Continued albuterol sulfate [ProAir HFA] 90 mcg/actuation HFA aerosol inhaler 2 puff INHALATION Q6H PRN (Reason: shortness of breath or wheezing) Qty: 18 2RF budesonide-formoterol [Symbicort] 80-4.5 mcg/actuation HFA aerosol inhaler 2 puff inhalation BID Qty: 10.2 2RF aspirin 81 mg tablet,delayed release (DR/EC) 81 mg PO DAILY 0RF montelukast 10 mg tablet 10 mg PO DAILY 30 Days Qty: 30 5RF metformin 500 mg tablet 1,000 mg PO BID Qty: 120 2RF Rx Instructions: TAKE BEFORE BREAKFAST AND SUPPER terbinafine HCl 250 mg tablet 250 mg PO DAILY Qty: 30 0RF celecoxib [Celebrex] 200 mg capsule 200 mg PO BID PRN (Reason: pain) Qty: 60 2RF cyclobenzaprine 10 mg tablet See Rx Instructions PO TID PRN (Reason: muscle spasm) Qty: 30 0RF Rx Instructions: 1/2 to 1 tab PO three times daily PRN; cyanocobalamin (vitamin B-12) 1,000 mcg/mL solution 1,000 mcg IM DAILY 7 Days Qty: 1 12RF Rx Instructions: 1,000 mcg weekly x 4 weeks then 1000 mcg once a month, USUALLY ON THE 1ST OR THE 3RD cetirizine [Zyrtec] 10 mg tablet 10 mg PO DAILY Qty: 90 2RF cholecalciferol (vitamin D3) 1,250 mcg (50,000 unit) capsule 1,250 mcg PO Q7D Qty: 4 1RF Rx Instructions: TAKE ON SAT OR SUN fluticasone propionate [Flonase Allergy Relief] 50 mcg/actuation sp ray,suspension 1 spray INTRANASAL BID 0RF atorvastatin 80 mg tablet 80 mg PO DAILY 0RF Discharge Orders: Discharge Order (Routine); Ordered 08/20/21 Ordered By: Carola Escobar Patient Instructions: Opioid Safety Discharge Attestations Time Spent in Discharge Care*: less than 30 min Quality Metrics Clinical Quality Measures [ No reported AMI, CVA or VTE this stay] Coding Level of Care Code Acute g [facility] note Diagnoses Adenomyosis N80.0 Thickened endometrium R93.89 Postmenopausal bleeding N95.0 Vaginal atrophy N95.2
[2021-08-20] MEDS: ibuprofen 800 mg tablet PO (11:57)
--- NOTE | 2021-08-20 12:33 | PC.CHAP ---
Pastoral Care Encounter/Spiritual Assessment Type of Contact [] Declined office support assistant visit [] Patient/Family/Request visit [] Outpatient visit [] Follow-up visit [] Physician referral [] Code/Alert [x] Routine visit [] Staff referral [] Actively dying [] Patient sleeping [] Family support [] [] Out of room [] Palliative care [] [] Receiving care in room [] Pre-surgical visit [] Trauma [] Long length of stay [] ICU visit [] Other: Relational/Emotional Strength [x] Patient feels connected with others/family/visitors/staff [] Distress [] Loneliness/isolation [] Abandonment Spirituality of Patient [x] Person of Kallie [] Attends Sabianist of their Kallie [x] Believes in Prayer [] Reads Bible or Scientology materials x [] There are Spiritual issues to be addressed Apartment Maintenance Worker Interventions [x] Prayer x] Active listening [x] Non-anxious presence [x] Spiritual/emotional support [] Crisis/trauma care [] Spiritual counseling [] Bereavement support [] Provided bereavement packet [] Provided Bible/devotional materials [] Provided toy/stuffed animal, coloring book to patient or family member [] Provided Communion [] Anointing/[place] [] Salvation [x Completed spiritual assessment [] Other: Impact on Illness or Injury [] Angry [] Fearful [] Anxious [] Often cries [] Exhaustion [] Unable to work [] Unable to attend tenriism [] Unable to walk/stand [] Unable to read [] Unable to drive [] Unable to eat/drink [] Unable to sleep [] Unable to be with family [] Patient intubated [] Other: Summary Time spent with patient 10 min
--- NOTE | 2021-08-20 12:51 | PC.NURSE ---
IV removed at this time patient tolerated well. Patient is A&Ox3. Respirations even and non-labored on room air. Reviewed discharge instructions with patient and at this time. Patient verbalized understanding of discharge medications and follow up appointments. Patient was wheel chaired to private car. Patient was given $10.00 to help with the cost of gas.
== END 2021-08-20 13:06 | disposition home or self-care (01) ==
LOC: MEDSURG 11:26
PROVIDERS: Admitting Provider Obstetrics & Gynecology; PCP Nurse Practitioner Family; Visit Provider Obstetrics & Gynecology
PROC: 0UT9FZZ Resection of Uterus, Via Natural or Artificial Opening With Percutaneous Endoscopic Assistance (ICD-10-PCS; CPT 58552; principal; 2021-08-19 07:00)
PROC: (CPT 58661; 2021-08-19 07:00)
PROC: 0TJB8ZZ Inspection of Bladder, Via Natural or Artificial Opening Endoscopic (ICD-10-PCS; CPT 52000; 2021-08-19 07:00)
DX: R93.89 Abnormal findings on diagnostic imaging of other specified body structures (principal); N80.0 Endometriosis of uterus; N95.0 Postmenopausal bleeding; N95.2 Postmenopausal atrophic vaginitis; J45.909 Unspecified asthma, uncomplicated; E11.9 Type 2 diabetes mellitus without complications; E78.5 Hyperlipidemia, unspecified; E66.01 Morbid (severe) obesity due to excess calories; Z68.33 Body mass index [BMI] 33.0-33.9, adult; Z79.82 Long term (current) use of aspirin; M79.7 Fibromyalgia; Z79.84 Long term (current) use of oral hypoglycemic drugs
CPT/HCPCS: 58552; 36415; 36416; 80048; 82962; 85025; 85027; 86850; 86900; 87086; 87635; 88307; 94640; G0378; J0690; J1100; J1170; J1200; J1885; J2250; J2405; J2704; J2710; J3010; J3490; J7030

== ENCOUNTER → 2022-01-22 16:20 | Outpatient (BNVA) | payer MEDICAID, SELFPAY | PROVIDERS: PCP Nurse Practitioner Family; Visit Provider Family Medicine | DX: E11.9 Type 2 diabetes mellitus without complications (principal); M54.50 Low back pain, unspecified; G89.29 Other chronic pain; J30.2 Other seasonal allergic rhinitis; E78.5 Hyperlipidemia, unspecified; E53.8 Deficiency of other specified B group vitamins; E55.9 Vitamin D deficiency, unspecified | CPT/HCPCS: 80053; 80061; 82306; 82607; 83036; 83735; 85025 ==

== ENCOUNTER 2022-03-27 10:23 | Outpatient (CLI) | payer MEDICAID, SELFPAY ==
--- NOTE | 2022-03-27 10:28 | XR_ITS ---
WS: [id number] K[facility], AP view, 03/27/2022 Clinical Data: Ureteral Stone Comparison: KUB, 03/14/2021 Findings: No abnormal intraabdominal masses or calcifications are seen. There is no dilatated small bowel or ev idence of obstruction. There is fecal material throughout the colon. There are phleboliths in the true pelvis. XR/XR KUB [id number] Impression: Negative KUB.
== END 2022-03-27 10:24 | disposition home or self-care (01) ==
LOC: RAD 10:24
PROVIDERS: PCP Nurse Practitioner Family; Visit Provider Urology
DX: N20.1 Calculus of ureter (principal); N28.1 Cyst of kidney, acquired
CPT/HCPCS: 74018; 81003; 99213

== ENCOUNTER → 2022-04-20 12:13 | Outpatient (BNVA) | payer MEDICAID, SELFPAY | PROVIDERS: PCP Nurse Practitioner Family; Visit Provider Nurse Practitioner Family | DX: E11.9 Type 2 diabetes mellitus without complications (principal); G89.29 Other chronic pain; M54.50 Low back pain, unspecified; E55.9 Vitamin D deficiency, unspecified | CPT/HCPCS: 80053; 80061; 82306; 82607; 83036; 83735; 84443; 84550; 85025; 85651; 86038; 86140; 86200; 86431 ==

== ENCOUNTER → 2022-04-23 09:00 | Outpatient (BNVA) | payer MEDICAID, SELFPAY | PROVIDERS: PCP Nurse Practitioner Family; Visit Provider Podiatrist Foot & Ankle Surgery | DX: L60.0 Ingrowing nail (principal) | CPT/HCPCS: 11750; A6219; A6446 ==

== ENCOUNTER → 2022-05-08 09:00 | Outpatient (BNVA) | payer MEDICAID, SELFPAY | PROVIDERS: PCP Nurse Practitioner Family; Visit Provider Podiatrist Foot & Ankle Surgery | DX: L60.0 Ingrowing nail (principal); Z98.890 Other specified postprocedural states | CPT/HCPCS: 99213 ==

== ENCOUNTER 2022-06-05 13:52 | Outpatient (CLI) | payer MEDICAID, SELFPAY ==
--- NOTE | 2022-06-05 16:00 | USCV_ITS ---
Keli Boucher Age: 56 Gender: F : 1965 Exam Date: 06/05/2022 14:34 Ordering Phys: Amber Minor [employer] Technologist: Timi Chi Exam Location: [facility] – [place] Indication: bilat leg pain and swelling PROCEDURES: The venous duplex Doppler examination of both lower extremities was performed in the standard fashion. The following venous structures were evaluated: common femoral vein, profunda vein, proximal portion of the greater saphenous vein, superficial femoral vein, and the popliteal vein. In addition, the posterior tibial and peroneal trunk were evaluated. Bilaterally, the common femoral, superficial femoral, profunda femoral, popliteal, posterior tibial, greater saphenous veins, and the peroneal trunk were identified and interrogated in the standard fashion. These veins were found to be easily compressible with spontaneous blood flow. No evidence of insufficiency or thrombus noted. FINDINGS: Normal 2-D Doppler and augmentation and compressibility throughout the lower extremity venous structures. Additional imaging through the proximal calf veins also reveals no thrombus. Limited evaluation of the greater saphenous vein is patent with no thrombus.. CONCLUSIONS No evidence of right lower extremity DVT. No evidence of left lower extremity DVT. Khang Martino MD (Electronically Signed) Final Date: 05 June 2022 15:11 S
== END 2022-06-05 13:53 | disposition home or self-care (01) ==
LOC: RAD 13:53
PROVIDERS: PCP Nurse Practitioner Family; Visit Provider Nurse Practitioner Family
DX: M79.604 Pain in right leg (principal); M79.605 Pain in left leg; M79.89 Other specified soft tissue disorders
CPT/HCPCS: 93970

== ENCOUNTER 2022-08-05 13:06 | Outpatient (CLI) | payer MEDICAID, SELFPAY ==
--- NOTE | 2022-08-05 13:45 | MR_ITS ---
WS: [id number] MRI LUMBAR SPINE NONCONTRAST TECHNIQUE: Sagittal T1, T2 and STIR imaging. Axial T1 and T2 imaging. CLINICAL INFORMATION: M54.41 - Lumbago with sciatica, right side COMPARISON: None. FINDINGS: Mild lumbar curve. No acute compression. Slight anterolisthesis L4 on L5. Small amount of edema in th e bilateral pedicles L4-L5 likely degenerative or inflammatory. Advanced facet arthropathy L4-L5. L1-L2: Mild disc bulging with a small amount of extruded disc material extending posterior to the L1 vertebral body cephalad. Impingement on the RIGHT subarticular recess and traversing RIGHT L2 nerve r oot. Foramen are patent. Mild facet arthropathy. L2-L3: Spinal canal and foramen are patent. Mild facet arthropathy. L3-L4: Mild annular bulging. Mild facet arthropathy. Spinal canal and foramen are patent. L4-L5: Slight grade 1 anterolisthesis. Disc bulging in combination with facet arthropathy and ligamen forrest flavum hypertrophy results in severe central canal stenosis. Mild LEFT and no significant RIGHT f oraminal narrowing. L5-S1: Mild annular bulging with slight impingement on the traversing LEFT greater than RIGHT S1 nerv e roots. Moderate facet arthropathy. Spinal canal and foramen are patent. A few tiny renal cysts. LEFT renal cortical cyst measuring 13 mm. Visualized pelvic bony structures: Normal. Paravertebral soft tissues: Normal. MR/MR lumbar spine wo con* [id number] IMPRESSION: 1. Slight anterolisthesis L4 on L5 with severe central canal stenosis. Advance d facet arthropathy at this level with ligamentum flavum hypertrophy. Recommend spine surgery consultation. 2. Mild LEFT L4-L5 foraminal narrowing. 3. Tiny RIGHT pericentral extrusion L1-L2 with cephalad migration of disc mate rial posterior to the L1 vertebral body. This results in slight impingement RIG HT subarticular recess and traversing RIGHT L2 nerve root. 4. Mild disc bulging L5-S1 with slight impingement traversing S1 nerve roots b ilaterally. LEFT greater than RIGHT. 5. Advanced facet arthropathy L4-L5 and Moderate facet arthropathy L5-S1 with edema in the bilateral pedicles likely due to degenerative or inflammatory syno vitis. Small amount of periarticular soft tissue edema. This also can be seen w ith instability.
== END 2022-08-05 13:07 | disposition home or self-care (01) ==
LOC: RAD 13:07
PROVIDERS: PCP Nurse Practitioner Family; Visit Provider Nurse Practitioner Family
DX: G89.29 Other chronic pain (principal); M54.41 Lumbago with sciatica, right side; M54.42 Lumbago with sciatica, left side; M51.27 Other intervertebral disc displacement, lumbosacral region
CPT/HCPCS: 72148

== ENCOUNTER → 2022-08-27 13:43 | Outpatient (BNVA) | payer MEDICAID, SELFPAY | PROVIDERS: PCP Nurse Practitioner Family; Referring Provider Nurse Practitioner Family; Visit Provider Orthopaedic Surgery | DX: M48.062 Spinal stenosis, lumbar region with neurogenic claudication (principal) | CPT/HCPCS: 72110; 99204 ==

== ENCOUNTER 2022-09-14 06:00 | Outpatient (RCR) | payer MEDICAID, SELFPAY | END 2022-10-04 23:59 | disposition home or self-care (01) | LOC: SPT 06:00 | PROVIDERS: Visit Provider Orthopaedic Surgery | DX: G89.29 Other chronic pain (principal); M54.9 Dorsalgia, unspecified | CPT/HCPCS: 97110; 97161 ==

== ENCOUNTER → 2022-09-21 09:42 | Outpatient (BNVA) | payer MEDICAID, SELFPAY | PROVIDERS: Referring Provider Orthopaedic Surgery; Visit Provider Anesthesiology Pain Medicine | DX: M48.062 Spinal stenosis, lumbar region with neurogenic claudication (principal) | CPT/HCPCS: 99204 ==

== ENCOUNTER → 2022-10-01 11:51 | Outpatient (BNVA) | payer MEDICAID, SELFPAY | PROVIDERS: Visit Provider Nurse Practitioner Family | DX: E11.9 Type 2 diabetes mellitus without complications (principal); E55.9 Vitamin D deficiency, unspecified; E78.5 Hyperlipidemia, unspecified; E53.8 Deficiency of other specified B group vitamins; M54.41 Lumbago with sciatica, right side; M54.42 Lumbago with sciatica, left side; G89.29 Other chronic pain; J30.2 Other seasonal allergic rhinitis | CPT/HCPCS: 80053; 80061; 82043; 82306; 83036; 84443; 85025 ==

== ENCOUNTER 2022-10-05 06:00 | Outpatient (RCR) | payer MEDICAID, SELFPAY | END 2022-11-04 23:59 | disposition home or self-care (01) | LOC: SPT 06:00 | PROVIDERS: Visit Provider Orthopaedic Surgery | DX: M54.9 Dorsalgia, unspecified (principal); G89.29 Other chronic pain | CPT/HCPCS: 97110 ==

== ENCOUNTER → 2022-10-06 12:59 | Outpatient (BNVA) | payer MEDICAID, SELFPAY | PROVIDERS: Visit Provider Anesthesiology Pain Medicine | DX: M54.16 Radiculopathy, lumbar region (principal); M48.062 Spinal stenosis, lumbar region with neurogenic claudication | CPT/HCPCS: 64483; 64484; J1100; J3490 ==

== ENCOUNTER → 2022-10-15 13:43 | Outpatient (BNVA) | payer MEDICAID, SELFPAY | PROVIDERS: Visit Provider Orthopaedic Surgery | DX: M48.062 Spinal stenosis, lumbar region with neurogenic claudication (principal) | CPT/HCPCS: 99213 ==

== ENCOUNTER 2022-10-22 11:03 | Outpatient (CLI) | payer MEDICAID, SELFPAY ==
--- NOTE | 2022-10-22 11:15 | US_ITS ---
WS: [id number] RIGHT UPPER QUADRANT ULTRASOUND HISTORY: Abnormal LFTs. COMPARISON: 07/12/2018 Liver: 17.0 cm in length. Liver is mildly enlarged. Very coarse echotexture throughout the liver with poor penetration. No mass or bile duct dilatation. Portal Vein: Normal hepatopetal flow with monophasic waveform. Gallbladder: Normally distended gallbladder with no stones or wall thickening. CBD: 0.3 cm Pancreas: Completely obscured by bowel gas. Right kidney: 10.6 cm in length. Normal size and echogenicity. No hydronephrosis or mass. Aorta and IVC: Unremarkable abdominal aorta and IVC. No ascites. US/US liver [id number] IMPRESSION: 1. Mild hepatomegaly with moderate to severe hepatic steatosis. The entire monica er is not well visualized due to attenuation. 2. Negative gallbladder. 3. Nonvisualization of the pancreas.
== END 2022-10-22 11:04 | disposition home or self-care (01) ==
LOC: RAD 11:05
PROVIDERS: PCP Nurse Practitioner Family; Visit Provider Nurse Practitioner Family
DX: R79.89 Other specified abnormal findings of blood chemistry (principal); R16.0 Hepatomegaly, not elsewhere classified
CPT/HCPCS: 76705

== ENCOUNTER → 2022-12-31 14:26 | Outpatient (BNVA) | payer MEDICAID, SELFPAY | PROVIDERS: PCP Nurse Practitioner Family; Visit Provider Nurse Practitioner Family | DX: R76.8 Other specified abnormal immunological findings in serum (principal); E11.9 Type 2 diabetes mellitus without complications | CPT/HCPCS: 80053; 80061; 82306; 83036; 84443; 85025; 85651; 86140; 86160; 86162; 86235; 86255; 86376; 86431 ==

== ENCOUNTER → 2023-02-10 08:03 | Outpatient (BNVA) | payer MEDICAID, SELFPAY | PROVIDERS: PCP Nurse Practitioner Family; Visit Provider Podiatrist Foot & Ankle Surgery | DX: L60.3 Nail dystrophy | CPT/HCPCS: 99213 ==

== ENCOUNTER → 2023-04-23 11:37 | Outpatient (BNVA) | payer MEDICAID, SELFPAY | PROVIDERS: PCP Nurse Practitioner Family; Visit Provider Internal Medicine | DX: L40.9 Psoriasis, unspecified (principal); E53.8 Deficiency of other specified B group vitamins; M79.7 Fibromyalgia; J45.909 Unspecified asthma, uncomplicated; E11.9 Type 2 diabetes mellitus without complications; E55.9 Vitamin D deficiency, unspecified; G62.9 Polyneuropathy, unspecified; M45.0 Ankylosing spondylitis of multiple sites in spine | CPT/HCPCS: 36415; 72202; 73120; 80053; 81003; 82550; 82728; 83540; 85025; 85651; 86003; 86008; 86160; 86704; 86803; 86812; 87340; 99204 ==

== ENCOUNTER → 2023-05-13 11:54 | Outpatient (BNVA) | payer MEDICAID, SELFPAY | PROVIDERS: PCP Nurse Practitioner Family; Visit Provider Nurse Practitioner Family | DX: E53.8 Deficiency of other specified B group vitamins (principal); E11.9 Type 2 diabetes mellitus without complications; E55.9 Vitamin D deficiency, unspecified | CPT/HCPCS: 80053; 80061; 82306; 82607; 82728; 83036; 83550; 84443; 85025 ==

== ENCOUNTER → 2023-05-19 12:15 | Outpatient (BNVA) | payer MEDICAID, SELFPAY | PROVIDERS: PCP Nurse Practitioner Family; Referring Provider Nurse Practitioner Family; Visit Provider Surgery | DX: D64.9 Anemia, unspecified (principal); K92.2 Gastrointestinal hemorrhage, unspecified | CPT/HCPCS: 99204 ==

== ENCOUNTER → 2023-05-27 15:09 | Outpatient (BNVA) | payer MEDICAID, SELFPAY | PROVIDERS: PCP Nurse Practitioner Family; Visit Provider Orthopaedic Surgery | DX: M48.062 Spinal stenosis, lumbar region with neurogenic claudication (principal) | CPT/HCPCS: 72100; 99214 ==

== ENCOUNTER 2023-06-18 07:40 | Day surgery (SDC) | payer MEDICAID, SELFPAY ==
[2023-06-18 08:02] VITALS: BP 137/89; PULSE 95; RESP 18; TEMP 36.9; O2SAT 96; BMI 23.3
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
[2023-06-18] MEDS: sodium chloride 0.9% 1,000 ML 30 ML IV (08:10)
[2023-06-18 08:56] LABS: Glucose Point of Care 128 mg/dL (70-110)
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
[2023-06-18 09:58] VITALS: BP 102/72; PULSE 83; RESP 16; TEMP 36.1; O2SAT 93
[2023-06-18 10:06] VITALS: BP 126/66; PULSE 76; RESP 20; O2SAT 98
== END 2023-06-18 10:29 | disposition home or self-care (01) ==
PROVIDERS: PCP Nurse Practitioner Family; Visit Provider Surgery
PROC: 0DJ08ZZ Inspection of Upper Intestinal Tract, Via Natural or Artificial Opening Endoscopic (ICD-10-PCS; CPT 43235; principal; 2023-06-18 09:00)
PROC: 0DJD8ZZ Inspection of Lower Intestinal Tract, Via Natural or Artificial Opening Endoscopic (ICD-10-PCS; CPT 45378; 2023-06-18 09:00)
DX: Z12.11 Encounter for screening for malignant neoplasm of colon (principal); K92.2 Gastrointestinal hemorrhage, unspecified; D64.9 Anemia, unspecified; K64.8 Other hemorrhoids; Z79.82 Long term (current) use of aspirin; Z79.84 Long term (current) use of oral hypoglycemic drugs; M79.7 Fibromyalgia; E78.5 Hyperlipidemia, unspecified; Z87.891 Personal history of nicotine dependence; K21.9 Gastro-esophageal reflux disease without esophagitis; E11.40 Type 2 diabetes mellitus with diabetic neuropathy, unspecified
CPT/HCPCS: 36416; 43235; 45378; 82962; J2704; J7030

== ENCOUNTER → 2023-06-25 08:58 | Outpatient (BNVA) | payer MEDICAID, SELFPAY | PROVIDERS: PCP Nurse Practitioner Family; Visit Provider Internal Medicine | DX: M79.7 Fibromyalgia (principal); G89.29 Other chronic pain; M54.42 Lumbago with sciatica, left side; M54.41 Lumbago with sciatica, right side; Z91.018 Allergy to other foods; E11.9 Type 2 diabetes mellitus without complications; R76.8 Other specified abnormal immunological findings in serum; R74.01 Elevation of levels of liver transaminase levels; M54.2 Cervicalgia; D50.9 Iron deficiency anemia, unspecified | CPT/HCPCS: 72040; 99214 ==

== ENCOUNTER → 2023-10-08 11:07 | Outpatient (BNVA) | payer OTHER, SELFPAY | PROVIDERS: PCP Nurse Practitioner Family; Visit Provider Nurse Practitioner Family | DX: E53.8 Deficiency of other specified B group vitamins (principal); E11.9 Type 2 diabetes mellitus without complications; E55.9 Vitamin D deficiency, unspecified | CPT/HCPCS: 80053; 80061; 82043; 82306; 82607; 83036; 85025 ==

== ENCOUNTER → 2023-11-22 11:07 | Outpatient (BNVA) | payer OTHER, SELFPAY | PROVIDERS: PCP Nurse Practitioner Family; Visit Provider Nurse Practitioner Family | DX: D64.9 Anemia, unspecified (principal) | CPT/HCPCS: 80053; 82607; 82746; 83550; 85025 ==

== ENCOUNTER 2024-01-04 15:02 | Oncology outpatient (recurring) (ONCR) | payer OTHER, MEDICAID, SELFPAY ==
[2024-01-04 17:47] LABS: Basophils % 0.4 %; Eosinophils # 0.1 10^3/uL (0.0-0.8); Eosinophils % 2.6 %; Hematocrit 30.9 % (36-47); Lymphocytes # 1.6 10^3/uL (0.8-4.8); Lymphocytes % 29.3 %; Mean Corpuscular HGB Conc 28.8 g/dL (30-55); Mean Corpuscular Hemoglobin 23.4 pg (27-33); Mean Corpuscular Volume 81.3 fl (85-98); Mean Platelet Volume 9.1 fL (7.4-10.4); Monocytes # 0.4 10^3/uL (0.2-0.9); Monocytes % 7.3 %; Neutrophils # 3.29 10^3/uL (1.8-7.7); Neutrophils % 60.2 %; Nucleated Red Blood Cells % 0 %; Platelet Count 402 10^3/cmm (157-399); Red Cell Distribution Width 18.4 % (12.1-15.1); Reticulocyte % 1.9 % (0.5-2.0); White Blood Count 5.46 10^3/uL (3.29-11.43)
[2024-01-04 18:23] LABS: Alanine Aminotransferase 20 U/L (0-33); Alkaline Phosphatase 94 U/L (35-105); Anion Gap 12.5 (5-19); Aspartate Amino Transferase 21 U/L (0-32); Blood Urea Nitrogen 15 mg/dL (6-20); Calcium 8.7 mg/dL (8.5-10.5); Carbon Dioxide 27 mmol/L (22-29); Chloride 107 mmol/L (98-107); Creatinine Clr Calc Pharmacy 148.0677; Ferritin 11 ng/mL (15-150); Globulin 2.5 g/dL (1.3-4.6); Glomerular Filtration Rate 165.1 mL/min (90-130); Glucose 87 mg/dL (65-115); Iron 33 ug/dL (37-145); LAB Peripheral Smear Sent for Review; Lactate Dehydrogenase 175 U/L (135-214); Osmolality Calculated 296 mOsm/kg (285-295); Percent Saturation 11.4 % (20-50); Potassium 3.5 mmol/L (3.5-5.1); Sodium 143 mmol/L (136-145); Total Bilirubin 0.8 mg/dL (0.15-1.2); Total Iron Binding Capacity 289 mcg/dl; Total Protein 6.5 g/dL (6.6-8.7); Unsaturated Iron Binding 256 ug/dL (112-347); Vitamin B12 298 pg/mL (232-1245)
[2024-01-04 18:25] LABS: Folate Level 11.7 ng/mL (4.8-37.3)
[2024-01-09 10:20] LABS: Methylmalonic Acid 229 nmol/L (55-335)
[2024-01-10 09:11] LABS: Soluble Transferrin Receptor 2.67 mg/L (0.76-1.76)
== END 2024-01-05 23:59 | disposition home or self-care (01) ==
PROVIDERS: PCP Nurse Practitioner Family; Visit Provider Internal Medicine Medical Oncology
DX: D64.9 Anemia, unspecified (principal); Z79.899 Other long term (current) drug therapy
CPT/HCPCS: 36415; 80053; 82607; 82728; 82746; 83010; 83540; 83550; 83615; 83921; 84238; 85025; 85045

== ENCOUNTER 2024-02-28 12:59 | Oncology outpatient (recurring) (ONCR) | payer OTHER, MEDICAID, SELFPAY ==
[2024-02-28 14:01] LABS: Basophils # 0.1 10^3/uL (0.0-0.1); Basophils % 0.7 %; Eosinophils # 0.1 10^3/uL (0.0-0.8); Eosinophils % 1.6 %; Hematocrit 34.5 % (36-47); Lymphocytes # 1.3 10^3/uL (0.8-4.8); Lymphocytes % 18.1 %; Mean Corpuscular Hemoglobin 24.8 pg (27-33); Mean Corpuscular Volume 85.4 fl (85-98); Mean Platelet Volume 9.1 fL (7.4-10.4); Monocytes # 0.5 10^3/uL (0.2-0.9); Monocytes % 7.4 %; Neutrophils # 4.99 10^3/uL (1.8-7.7); Neutrophils % 72.1 %; Nucleated Red Blood Cells % 0 %; Platelet Count 354 10^3/cmm (157-399); Red Blood Count 4.04 10^6/uL (3.85-5.65); Red Cell Distribution Width 18.1 % (12.1-15.1); White Blood Count 6.92 10^3/uL (3.29-11.43)
[2024-02-28 14:14] LABS: Ferritin 8 ng/mL (15-150); Iron 72 ug/dL (37-145); Percent Saturation 25.1 % (20-50); Total Iron Binding Capacity 286 mcg/dl; Unsaturated Iron Binding 214 ug/dL (112-347)
== END 2024-03-06 23:59 | disposition home or self-care (01) ==
PROVIDERS: PCP Nurse Practitioner Family; Visit Provider Internal Medicine Medical Oncology
DX: D50.9 Iron deficiency anemia, unspecified (principal)
CPT/HCPCS: 36415; 82728; 83540; 83550; 85025

== ENCOUNTER 2024-05-01 13:01 | Oncology outpatient (recurring) (ONCR) | payer OTHER, MEDICAID, SELFPAY ==
[2024-05-01 14:08] LABS: Basophils % 0.9 %; Eosinophils # 0.1 10^3/uL (0.0-0.8); Eosinophils % 1.1 %; Lymphocytes # 1.1 10^3/uL (0.8-4.8); Lymphocytes % 25.3 %; Mean Corpuscular HGB Conc 29.7 g/dL (30-55); Mean Corpuscular Hemoglobin 25.6 pg (27-33); Mean Platelet Volume 8.7 fL (7.4-10.4); Monocytes # 0.3 10^3/uL (0.2-0.9); Monocytes % 7.3 %; Neutrophils # 2.87 10^3/uL (1.8-7.7); Neutrophils % 65.4 %; Nucleated Red Blood Cells % 0 %; Platelet Count 315 10^3/cmm (157-399); Red Cell Distribution Width 15.4 % (12.1-15.1); White Blood Count 4.39 10^3/uL (3.29-11.43)
[2024-05-01 14:42] LABS: Alanine Aminotransferase 22 U/L (0-33); Albumin Level 4.2 g/dL (3.5-5.2); Alkaline Phosphatase 107 U/L (35-105); Anion Gap 12.6 (5-19); Aspartate Amino Transferase 26 U/L (0-32); Blood Urea Nitrogen 32 mg/dL (6-20); Calcium 9.7 mg/dL (8.5-10.5); Carbon Dioxide 28 mmol/L (22-29); Chloride 100 mmol/L (98-107); Creatinine Clr Calc Pharmacy 116.1154; Ferritin 26 ng/mL (15-150); Globulin 2.8 g/dL (1.3-4.6); Glomerular Filtration Rate 127.6 mL/min (90-130); Glucose 86 mg/dL (65-115); Iron 49 ug/dL (37-145); Osmolality Calculated 290 mOsm/kg (285-295); Percent Saturation 16.8 % (20-50); Potassium 3.6 mmol/L (3.5-5.1); Sodium 137 mmol/L (136-145); Total Bilirubin 0.8 mg/dL (0.15-1.2); Total Iron Binding Capacity 291 mcg/dl; Unsaturated Iron Binding 242 ug/dL (112-347)
== END 2024-05-06 23:59 | disposition home or self-care (01) ==
PROVIDERS: Nurse Practitioner Family; PCP Nurse Practitioner Family; Visit Provider Internal Medicine Medical Oncology
DX: D50.9 Iron deficiency anemia, unspecified (principal)
CPT/HCPCS: 36415; 80053; 82728; 83540; 83550; 85025

== ENCOUNTER → 2024-05-03 12:12 | Outpatient (BNVA) | payer OTHER, MEDICAID, SELFPAY | PROVIDERS: PCP Nurse Practitioner Family; Visit Provider Nurse Practitioner Family | DX: E11.9 Type 2 diabetes mellitus without complications (principal) | CPT/HCPCS: 80061; 83036; 84443 ==

== ENCOUNTER 2024-07-03 10:27 | Oncology outpatient (recurring) (ONCR) | payer OTHER, MEDICAID, SELFPAY ==
[2024-07-03 11:20] LABS: Basophils # 0.1 10^3/uL (0.0-0.1); Basophils % 0.6 %; Eosinophils # 0.2 10^3/uL (0.0-0.8); Eosinophils % 1.8 %; Hematocrit 37.1 % (36-47); Lymphocytes % 12.1 %; Mean Corpuscular HGB Conc 30.7 g/dL (30-55); Mean Corpuscular Hemoglobin 27.6 pg (27-33); Mean Corpuscular Volume 89.8 fl (85-98); Mean Platelet Volume 8.8 fL (7.4-10.4); Monocytes # 0.5 10^3/uL (0.2-0.9); Monocytes % 6.5 %; Neutrophils # 6.54 10^3/uL (1.8-7.7); Neutrophils % 78.6 %; Nucleated Red Blood Cells % 0 %; Platelet Count 375 10^3/cmm (157-399); Red Blood Count 4.13 10^6/uL (3.85-5.65); Red Cell Distribution Width 14.7 % (12.1-15.1); White Blood Count 8.32 10^3/uL (3.29-11.43)
[2024-07-03 11:37] LABS: Alanine Aminotransferase 36 U/L (0-33); Alkaline Phosphatase 152 U/L (35-105); Aspartate Amino Transferase 33 U/L (0-32); Blood Urea Nitrogen 16 mg/dL (6-20); Calcium 9.1 mg/dL (8.5-10.5); Carbon Dioxide 29 mmol/L (22-29); Chloride 104 mmol/L (98-107); Ferritin 20 ng/mL (15-150); Globulin 2.5 g/dL (1.3-4.6); Glomerular Filtration Rate 165.1 mL/min (90-130); Glucose 143 mg/dL (65-115); Iron 148 ug/dL (37-145); Osmolality Calculated 298 mOsm/kg (285-295); Percent Saturation 53.4 % (20-50); Sodium 142 mmol/L (136-145); Total Bilirubin 0.8 mg/dL (0.15-1.2); Total Iron Binding Capacity 277 mcg/dl; Total Protein 6.5 g/dL (6.6-8.7); Unsaturated Iron Binding 129 ug/dL (112-347)
== END 2024-07-07 23:59 | disposition home or self-care (01) ==
PROVIDERS: Nurse Practitioner Family; PCP Nurse Practitioner Family; Visit Provider Internal Medicine Medical Oncology
DX: D50.9 Iron deficiency anemia, unspecified (principal)
CPT/HCPCS: 36415; 80053; 82728; 83540; 83550; 85025

== ENCOUNTER → 2024-07-25 10:04 | Outpatient (BNVA) | payer OTHER, MEDICAID, SELFPAY | PROVIDERS: Family Provider Nurse Practitioner Family; PCP Nurse Practitioner Family; Visit Provider Nurse Practitioner Family | DX: R05.9 Cough, unspecified (principal); J40 Bronchitis, not specified as acute or chronic | CPT/HCPCS: 71046 ==

== ENCOUNTER 2024-08-04 13:55 | Oncology outpatient (recurring) (ONCR) | payer OTHER, MEDICAID, SELFPAY ==
--- NOTE | 2024-08-04 14:45 | CT_ITS ---
WS: [id number] CT chest w con* [id number] HISTORY: R05.3 - Chronic cough TECHNIQUE: Axial imaging performed through the thorax. Coronal and sagittal reformats are submitted. All CT scans at [facility] use at least one of these dose optimization techniques: automated exposure control; mA and/or kV adjustment per patient size (includes targeted exams where dose is matched to clinical indication); or iterative reconstruction. CONTRAST: Omnipaque 350; 100 mL IV. DLP: 336.07 mGy.cm COMPARISON: 08/30/2020, chest radiograph 07/25/2024 Lungs and central airway: Lungs are normally expanded. No pulmonary mass. 2 mm micronodule along the LEFT fissure. Benign subpleural calcified nodule LEFT lower lobe. No pulmonary mass or pneumonia. No groundglass attenuation. Pleura: Normal. No pleural effusion. Heart and pericardium: Normal size heart with no pericardial effusion. Mediastinum and dori: No mediastinum or hilar adenopathy. Vessels: Minimal atherosclerosis aorta. Normal size pulmonary artery. Chest wall and lower neck: No soft tissue masses. Upper abdomen: No adrenal mass. Visualized liver is normal. Osseous structures: No destructive process. Mild hypertrophic thoracic spine paraspinal soft tissue osteophytes. CT/CT chest w con* [id number] IMPRESSION: 1. No pneumonia. No pulmonary mass or nodule. 2. No mediastinal or hilar adenopathy. 3. Normal size heart.
[2024-08-04] MEDS: iohexol 350 mg/mL 500 mL Btl (per mL) IV (14:46)
== END 2024-08-04 23:59 | disposition home or self-care (01) ==
LOC: RAD 13:57 → ONCMED 08-07 09:59
PROVIDERS: Family Provider Nurse Practitioner Family; PCP Nurse Practitioner Family; Visit Provider Nurse Practitioner Family
DX: D50.9 Iron deficiency anemia, unspecified (principal); R05.3 Chronic cough
CPT/HCPCS: 71260

== ENCOUNTER 2024-09-13 21:53 | Emergency (ER) | payer OTHER, MEDICAID, SELFPAY ==
[2024-09-13 21:53] VITALS: BP 137/77; PULSE 82; RESP 20; TEMP 36.9; O2SAT 93; BMI 32.5
[2024-09-13 22:04] VITALS: BP 137/77; PULSE 82; RESP 20; O2SAT 93
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
[2024-09-13] MEDS: meclizine 25 mg tablet 50 MG PO (22:34)
[2024-09-13 22:35] VITALS: BP 129/80; PULSE 92; O2SAT 94
== END 2024-09-13 22:36 | disposition home or self-care (01) ==
PROVIDERS: Emergency Provider Emergency Medicine; PCP Nurse Practitioner Family
DX: H65.01 Acute serous otitis media, right ear (principal); R42 Dizziness and giddiness; Z79.82 Long term (current) use of aspirin; Z79.84 Long term (current) use of oral hypoglycemic drugs; Z87.891 Personal history of nicotine dependence; E78.5 Hyperlipidemia, unspecified; E11.40 Type 2 diabetes mellitus with diabetic neuropathy, unspecified
CPT/HCPCS: 99283; J8597

== ENCOUNTER 2024-09-19 13:18 | Outpatient (CLI) | payer OTHER, MEDICAID, SELFPAY ==
[2024-09-19 13:44] VITALS: PULSE 85; RESP 18; O2SAT 99
[2024-09-19] MEDS: albuterol 2.5 mg/3 mL Neb INHALATION (13:44)
== END 2024-09-19 13:19 | disposition home or self-care (01) ==
LOC: RT 13:21
PROVIDERS: PCP Nurse Practitioner Family; Visit Provider Nurse Practitioner Family
DX: R06.02 Shortness of breath (principal)
CPT/HCPCS: 94060; 94726; 94729

== ENCOUNTER → 2024-09-20 14:29 | Outpatient (BNVA) | payer OTHER, MEDICAID, SELFPAY | PROVIDERS: PCP Nurse Practitioner Family; Visit Provider Nurse Practitioner Family | DX: E11.9 Type 2 diabetes mellitus without complications (principal); R01.1 Cardiac murmur, unspecified | CPT/HCPCS: 80053; 82607; 83036; 84443; 85025 ==

== ENCOUNTER 2024-10-02 11:51 | Oncology outpatient (recurring) (ONCR) | payer OTHER, MEDICAID, SELFPAY ==
[2024-10-02 12:16] LABS: Basophils % 0.6 %; Eosinophils # 0.1 10^3/uL (0.0-0.8); Eosinophils % 2.6 %; Hematocrit 39.5 % (36-47); Lymphocytes # 1.4 10^3/uL (0.8-4.8); Lymphocytes % 28.3 %; Mean Corpuscular HGB Conc 29.9 g/dL (30-55); Mean Corpuscular Hemoglobin 26.9 pg (27-33); Mean Corpuscular Volume 90.2 fl (85-98); Mean Platelet Volume 8.9 fL (7.4-10.4); Monocytes # 0.3 10^3/uL (0.2-0.9); Monocytes % 6.7 %; Neutrophils # 3.03 10^3/uL (1.8-7.7); Neutrophils % 61.6 %; Nucleated Red Blood Cells % 0 %; Platelet Count 352 10^3/cmm (157-399); Red Blood Count 4.38 10^6/uL (3.85-5.65); Red Cell Distribution Width 13.2 % (12.1-15.1); White Blood Count 4.92 10^3/uL (3.29-11.43)
[2024-10-02 12:33] LABS: Alanine Aminotransferase 29 U/L (0-33); Albumin Level 4.1 g/dL (3.5-5.2); Alkaline Phosphatase 96 U/L (35-105); Aspartate Amino Transferase 22 U/L (0-32); Blood Urea Nitrogen 15 mg/dL (6-20); Calcium 9.2 mg/dL (8.5-10.5); Carbon Dioxide 26 mmol/L (22-29); Chloride 106 mmol/L (98-107); Ferritin 20 ng/mL (15-150); Globulin 2.5 g/dL (1.3-4.6); Glomerular Filtration Rate 164.5 mL/min (90-130); Glucose 111 mg/dL (65-115); Iron 59 ug/dL (37-145); Osmolality Calculated 296 mOsm/kg (285-295); Percent Saturation 20.3 % (20-50); Sodium 142 mmol/L (136-145); Total Bilirubin 0.9 mg/dL (0.15-1.2); Total Iron Binding Capacity 290 mcg/dl; Total Protein 6.6 g/dL (6.6-8.7); Unsaturated Iron Binding 231 ug/dL (112-347)
== END 2024-10-04 23:59 | disposition home or self-care (01) ==
PROVIDERS: Internal Medicine Medical Oncology; PCP Nurse Practitioner Family; Visit Provider Nurse Practitioner Family
DX: N28.1 Cyst of kidney, acquired (principal)
CPT/HCPCS: 36415; 80053; 82728; 83540; 83550; 85025

== ENCOUNTER 2024-11-13 13:30 | Oncology outpatient (recurring) (ONCR) | payer OTHER, MEDICAID, SELFPAY ==
--- NOTE | 2024-11-10 08:30 | USCV_ITS ---
Keli Boucher Age: 59 Gender: F : 1965 Exam Date: 11/10/2024 06:51 Ordering Phys: Amber Minor [employer] SUPERVISOR [employer] SUPERVISOR Technologist: MAHAD [place] [facility] [place]: Murmur BP: / HR: Rhythm: Sinus Technical Quality: Adequate MEASUREMENTS (Male / Female) Normal Values FINDINGS Left Ventricle Normal left ventricular size, systolic function and wall thickness, with no regional wall motion abnormalities. Left ventricular ejection fraction is estimated at 60 %. Grade I/IV diastolic dysfunction (abnormal relaxation filling pattern), normal to mildly elevated filling pressures. Right Ventricle The right ventricle is normal in size and function. Right Atrium The right atrium is normal in size. Left Atrium The left atrium is normal in size. Mitral Valve Structurally normal mitral valve without significant stenosis or prolapse. There is no mitral regurgitation. Aortic Valve Structurally normal aortic valve without significant sclerosis or stenosis. There is no aortic regurgitation. Tricuspid Valve Structurally normal tricuspid valve without significant stenosis or regurgitation. Pulmonary artery systolic pressure is normal. Pulmonic Valve Structurally normal pulmonic valve without significant stenosis. There is no pulmonic regurgitation. Pericardium Normal pericardium without effusion. Aorta Normal ascending aorta dimension. IVC The inferior vena cava appears normal. CONCLUSIONS Normal left ventricular size, systolic function and wall thickness, with no regional wall motion abnormalities. Left ventricular ejection fraction is estimated at 60 %. Grade I/IV diastolic dysfunction (abnormal relaxation filling pattern), normal to mildly elevated filling pressures. There is no pericardial effusion. No significant valve abnormalities. Right atrial pressure is around 5 mm of mercury. Len Durham MD (Electronically Signed) Final Date: 10 November 2024 08:14 S
== END 2024-12-04 23:59 | disposition home or self-care (01) ==
PROVIDERS: PCP Nurse Practitioner Family; Visit Provider Nurse Practitioner Family
DX: Z53.9 Procedure and treatment not carried out, unspecified reason (principal)
CPT/HCPCS: 93306

== ENCOUNTER 2024-12-25 13:12 | Oncology outpatient (recurring) (ONCR) | payer OTHER, MEDICAID, SELFPAY ==
[2024-12-25 14:09] LABS: Hematocrit 38.6 % (36-47); Hemoglobin 12.10 g/dL (11.27-16.99); Mean Corpuscular HGB Conc 31.3 g/dL (30-55); Mean Corpuscular Hemoglobin 27.9 pg (27-33); Mean Corpuscular Volume 89.1 fl (85-98); Nucleated Red Blood Cells % 0 %; Platelet Count 336 10^3/cmm (157-399); Red Blood Count 4.33 10^6/uL (3.85-5.65); White Blood Count 5.40 10^3/uL (3.29-11.43)
[2024-12-25 14:20] LABS: Alanine Aminotransferase 20 U/L (0-33); Albumin Level 4.1 g/dL (3.5-5.2); Alkaline Phosphatase 107 U/L (35-105); Anion Gap 17.2 (5-19); Aspartate Amino Transferase 20 U/L (0-32); Blood Urea Nitrogen 14 mg/dL (6-20); Calcium 8.7 mg/dL (8.5-10.5); Carbon Dioxide 21 mmol/L (22-29); Chloride 108 mmol/L (98-107); Creatinine Clr Calc Pharmacy 120.0667; Ferritin 35 ng/mL (15-150); Globulin 2.9 g/dL (1.3-4.6); Glucose 104 mg/dL (65-115); Iron 87 ug/dL (37-145); Osmolality Calculated 295 mOsm/kg (285-295); Potassium 4.2 mmol/L (3.5-5.1); Sodium 142 mmol/L (136-145); Total Iron Binding Capacity 262 mcg/dl; Total Protein 7.0 g/dL (6.6-8.7); Unsaturated Iron Binding 175 ug/dL (112-347)
== END 2025-01-04 23:59 | disposition home or self-care (01) ==
PROVIDERS: PCP Nurse Practitioner Family; Visit Provider Nurse Practitioner Family
DX: D50.9 Iron deficiency anemia, unspecified (principal)
CPT/HCPCS: 36415; 80053; 82728; 83540; 83550; 85025

== ENCOUNTER 2024-12-28 08:21 | Emergency (ER) | payer OTHER, MEDICAID, SELFPAY ==
--- OUTSIDE RECORDS SUMMARY | 2024-12-28 08:26 | XMS_ITS | Data Portability ---
Author Organization [facility] Address [address] [place] [address] Assessment No assessment recorded. Plan of Treatment Reminders Order Date Submit Date Provider Last Modified By Organization Details Last Modified Time Details Appointments None recorded. Lab None recorded. Referral podiatris t referral - Podiatris t in [place] - Dr Sandoval 2020 [address] Sandoval, [address] [place], [address], 19:58:25 Procedures None recorded. Surgeries None recorded. Imaging XR, ankle, 3 or more view 2020 [facility] - Urgent Care - [address], [address], 17:31:16 Medication Orders ibuprofen 600 mg tablet 2020 [facility] [place], [address], 17:45:11 Patient TargetsNo targets recorded. Patient Instructions Encounter Date Encounter Id Patient Instructions Last Modified By Organization Details Last Modified Time 01/27/2021 [id number] heart-healthy diet: care instructions [email or web address] Not available 01/27/2021 18:36:59 Elevate and ice ankle as often as possible. Wear boot except in bed. [email or web address] Not available 01/27/2021 18:37:55 Reason for Referral Surgery Specialist Referral for Spra in of right ankle Surgery Specialist in [place] - Dr Sandoval Referring Physician: Angelique Bowers, Family Medicine, Encounter Date: 01/27/2021 Results Created Date Observation Date Name Description Value Unit Range Abnormal Flag Note LastModifiedBy Organization Detail LastModifiedTime 01/28/20 21 01/27/2021 XR, ankle , 3 or more view No observ ation record ed. [email or web address] [facility] - Urgen t Care - [address], [address], 02/05/2021 13:25:57 01/29/20 21 01/27/2021 XR, ankle , 3 or more view No observ ation record ed. [email or web address] [facility] - Urgent Care - [address], [address], 01/28/2021 12:31:07 Result Notes None recorded. Medical Equipment None Reported. Allergies Allergen ID Allergen Name Allergen Category Reaction Reaction Severity Criticality Documentation Date Start Date Code Code System Note Provider Name and Address Organization Details Recorded Time 12490 Product containin g penicilli n (product) medicatio n Not available Not available Not available 01/27/2021 [id number] SNOMED Heather _[place] [address], [address] [place] [address] 16:57:47 Medications Name Sig Start Date Stop Date Status Note LastModified by Organization Details LastModified Time cyclobenzap rine 10 mg tablet TAKE 1 TABLET BY MOUTH THREE TIMES DAILY NEEDED FOR MUSCLE SPASM 01/27 completed Not Available Not Available Not Available metformin 500 mg tablet TAKE 2 TABLETS BY MOUTH TWICE DAILY BEFORE BREAKFAST AND SUPPER active Not Available Not Available No t Available promethazin e-DM 6.25 mg-15 mg/5 mL oral syrup TAKE 5 TO 10 ML BY MOUTH EVERY 6 HOURS NEEDED FOR COUGH 01/27 completed Not Available Not Available Not Available atorvastati n 80 mg tablet TAKE 1 TABLET BY MOUTH ONCE DAILY active Not Available Not Available No t Available prednisone 10 mg tablet TAKE DIRECTED active Not Available Not Available No t Available doxycycline hyclate 100 mg capsule TAKE 1 CAPSULE BY MOUTH TWICE DAILY 01/27 completed Not Available Not Available Not Available cetirizine 10 mg tablet TAKE 1 TABLET BY MOUTH ONCE DAILY active Not Available Not Available No t Available azithromyci n 250 mg tablet TAKE 2 TABLETS BY MOUTH ON DAY 1 AND THEN TAKE 1 TABLET BY MOUTH ONCE A DAY ON DAY 2 THROUGH DAY 5 01/27 completed Not Available Not Available Not Available hydrocortis one 1 % topical ointment APPLY TO AFFECTED AREA TWICE A DAY NEEDED FOR ITCHING 01/27 completed Not Available Not Available Not Available meloxicam 15 mg tablet TAKE 1 TABLET BY MOUTH ONCE DAILY active Not Available Not Available No t Available prednisone 20 mg tablet TAKE 2 TABLETS BY MOUTH ONCE DAILY FOR 5 DAYS active Not Available Not Available No t Available sulfamethox azole 800 mg-trimetho prim 160 mg tablet TAKE 1 TABLET BY MOUTH TWICE DAILY FOR INFECTION 01/27 completed Not Available Not Available Not Available ketorolac 10 mg tablet TAKE 1 TABLET BY MOUTH EVERY 4 HOURS DONT EXCEED 40MG IN 2HRS FOR UP TO 5 DAYS 01/27 completed Not Available Not Available Not Available cephalexin 500 mg capsule TAKE 1 CAPSULE BY MOUTH TWICE DAILY FOR 7 DAYS 01/27 completed Not Available Not Available Not Available cyanocobala min (vit B-12) 1,000 mcg/mL injection solution INJECT 1 ML (CC) INTRAMUSC ULARLY ONCE EVERY MONTH active Not Available Not Available No t Available hydrocortis one 2.5 % topical cream APPLY TOPICALLY ONCE DAILY TO FACE WEDNESDAY THRU WEDNESDAY AND OFF ON WEEKENDS NEEDED. DO NOT GET IN EYES. active Not Available Not Available No t Available montelukast 10 mg tablet TAKE 1 TABLET BY MOUTH ONCE DAILY FOR 30 DAYS active Not Available Not Available No t Available ibuprofen 600 mg tablet Take 1 tablet every 6 hours by oral route as needed. 2020 active Not Available Not Available Not Avai lable methylpredn isolone 4 mg tablets in a dose pack TAKE BY MOUTH DIRECTED ON INSIDE OF PACKAGE 01/27 completed Not Available Not Available Not Available fluticasone propionate 50 mcg/actuati on nasal spray,suspe nsion USE 1 SPRAY(S) IN EACH NOSTRIL TWICE DAILY active Not Available Not Available No t Available metronidazo le 1 % topical gel APPLY TOPICALLY ONCE DAILY active Not Available Not Available No t Available ProAir HFA 90 mcg/actuati on aerosol inhaler INHALE 2 PUFFS BY MOUTH EVERY 6 HOURS NEEDED FOR SHORTNESS OF BREATH FOR WHEEZING active Not Available Not Available No t Available Symbicort 80 mcg-4.5 mcg/actuati on HFA aerosol inhaler INHALE 2 PUFFS BY MOUTH TWICE DAILY active Not Available Not Available No t Available cholecalcif mikey (vitamin D3) 1,250 mcg (50,000 unit) capsule TAKE 1 CAPSULE BY MOUTH ONCE A WEEK active Not Available Not Available No t Available Vitals Date Recorded Body height Body mass index (BMI) Body weight Body temperature Heart rate Oxygen saturation Oxygen saturation in Arterial blood by Pulse oximetry Respiratory rate Systolic And Diastolic Provider Name and Address Organization Details Last Updated DateTime 1 157.48 cm 34.4 kg/m2 90364.7 7 g 98.6 [degF] 87 /min 97 % 97 % 18 /min 150/84 mm[Hg] Heather _[address], [address] [place] [address] 1 16:57:33 Social History None recorded. Functional Status None recorded. Mental Status None recorded. Family History Nothing Reported. Medical History No medical history recorded. Gynecological HistoryNo gynecological history recorded. Obstetrics History GPAL:G 0 P 0 0 0 0 Past Encounters Encounter ID Performer Location Encounter Start Date Encounter Closed Date Diagnosis/Indication Diagnosis SNOMED-CT Code Diagnosis ICD10 Code Diagnosis Note [id number] ANGELIQUE BOWERS NP [facility] - Urgent Care [address] [address] 01/27/2021 14:24:52 01/27/2021 20:02:00 Pain of right ankle joint [id number] 6929675 M25.571 Sprain of right ankle 11 [id number] S93.411A Body mass index 30+ - obesity 191837034 Z68.34 Health Concerns Section Related Observation LastModified by Organization Detai ls LastModified Time None Recorded Concern Status LastModified by Organization Details LastModified Time None Recorded Advance Directives Directive None Recorded Payers Insurance Date Sequence Insurance Name Policy Number Policy Chambers Covered Member ID Chambers Member ID Guarantor Name 02/05/2021 2 *SELF PAY* Ca rol Doles 02/13/2021 1 [place] Keli Boucher [id number] Keli Boucher Notes Date Note Type Note Provider Name and Address Organization Details Recorded Time 01/27/2021 text/html ROS as noted in the HPI Has twisted her right ankle 3 times last week Angelique kaplan [place] - [facility] 01/27/2021 18:38:50 OBGyn Episode No OBEpisode recorded.
[2024-12-28 08:34] VITALS: BP 125/69; PULSE 78; RESP 18; TEMP 36.8; O2SAT 95; BMI 32.0
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
[2024-12-28 09:20] LABS: Hematocrit 39.4 % (36-47); Hemoglobin 11.90 g/dL (11.27-16.99); Mean Corpuscular HGB Conc 30.2 g/dL (30-55); Mean Corpuscular Hemoglobin 27.3 pg (27-33); Mean Corpuscular Volume 90.4 fl (85-98); Nucleated Red Blood Cells % 0 %; Platelet Count 336 10^3/cmm (157-399); Red Blood Count 4.36 10^6/uL (3.85-5.65); White Blood Count 4.48 10^3/uL (3.29-11.43)
[2024-12-28 09:35] LABS: Alanine Aminotransferase 22 U/L (0-33); Albumin Level 3.8 g/dL (3.5-5.2); Alkaline Phosphatase 96 U/L (35-105); Anion Gap 15.7 (5-19); Aspartate Amino Transferase 22 U/L (0-32); Blood Urea Nitrogen 21 mg/dL (6-20); Calcium 9.0 mg/dL (8.5-10.5); Carbon Dioxide 24 mmol/L (22-29); Chloride 103 mmol/L (98-107); Creatinine Clr Calc Pharmacy 121.1336; Globulin 2.9 g/dL (1.3-4.6); Glucose 110 mg/dL (65-115); Osmolality Calculated 292 mOsm/kg (285-295); Potassium 3.7 mmol/L (3.5-5.1); Sodium 139 mmol/L (136-145); Total Protein 6.7 g/dL (6.6-8.7)
[2024-12-28 09:36] VITALS: BP 137/66; PULSE 96; O2SAT 93
[2024-12-28 10:06] VITALS: BP 136/72; PULSE 76; O2SAT 96
== END 2024-12-28 10:07 | disposition home or self-care (01) ==
PROVIDERS: Emergency Provider Family Medicine; PCP Nurse Practitioner Family
DX: T63.331D Toxic effect of venom of brown recluse spider, accidental (unintentional), subsequent encounter (principal); X58.XXXD Exposure to other specified factors, subsequent encounter; L03.116 Cellulitis of left lower limb; L02.416 Cutaneous abscess of left lower limb; E11.9 Type 2 diabetes mellitus without complications; E78.5 Hyperlipidemia, unspecified; Z87.891 Personal history of nicotine dependence
CPT/HCPCS: 36415; 80053; 85025; 87040; 99283

== ENCOUNTER → 2025-01-02 12:30 | Outpatient (BNVA) | payer OTHER, MEDICAID, SELFPAY | PROVIDERS: PCP Nurse Practitioner Family; Visit Provider Nurse Practitioner Family | DX: E11.9 Type 2 diabetes mellitus without complications (principal); T63.331D Toxic effect of venom of brown recluse spider, accidental (unintentional), subsequent encounter | CPT/HCPCS: 80053; 80061; 83036; 85025 ==

== ENCOUNTER 2025-03-26 12:00 | Oncology outpatient (recurring) (ONCR) | payer MEDICAID, SELFPAY ==
[2025-03-26 12:28] LABS: Hematocrit 39.8 % (36-47); Hemoglobin 12.50 g/dL (11.27-16.99); Mean Corpuscular HGB Conc 31.4 g/dL (30-55); Mean Corpuscular Hemoglobin 27.5 pg (27-33); Mean Corpuscular Volume 87.7 fl (85-98); Nucleated Red Blood Cells % 0 %; Platelet Count 336 10^3/cmm (157-399); Red Blood Count 4.54 10^6/uL (3.85-5.65); White Blood Count 5.81 10^3/uL (3.29-11.43)
[2025-03-26 12:51] LABS: Alanine Aminotransferase 22 U/L (0-33); Albumin Level 4.1 g/dL (3.5-5.2); Alkaline Phosphatase 114 U/L (35-105); Anion Gap 12.4 (5-19); Aspartate Amino Transferase 25 U/L (0-32); Blood Urea Nitrogen 15 mg/dL (6-20); Calcium 9.1 mg/dL (8.5-10.5); Carbon Dioxide 30 mmol/L (22-29); Chloride 101 mmol/L (98-107); Creatinine Clr Calc Pharmacy 150.0834; Ferritin 32 ng/mL (15-150); Globulin 2.9 g/dL (1.3-4.6); Glucose 145 mg/dL (65-115); Iron 115 ug/dL (37-145); Osmolality Calculated 291 mOsm/kg (285-295); Potassium 4.4 mmol/L (3.5-5.1); Sodium 139 mmol/L (136-145); Total Iron Binding Capacity 268 mcg/dl; Total Protein 7.0 g/dL (6.6-8.7); Unsaturated Iron Binding 153 ug/dL (112-347)
== END 2025-04-06 23:59 | disposition home or self-care (01) ==
PROVIDERS: PCP Nurse Practitioner Family; Visit Provider Nurse Practitioner Family
DX: D50.9 Iron deficiency anemia, unspecified (principal); R03.0 Elevated blood-pressure reading, without diagnosis of hypertension; G62.9 Polyneuropathy, unspecified; Z87.891 Personal history of nicotine dependence; Z79.899 Other long term (current) drug therapy
CPT/HCPCS: 36415; 80053; 82728; 83540; 83550; 85025; 99213